=== PATIENT | male | born 1985 | race Caucasian/White ===

== ENCOUNTER 2022-12-04 11:04 | Emergency (ER) | payer OTHER, SELFPAY ==
[2022-12-04 11:15] VITALS: BP 122/81; PULSE 85; RESP 18; TEMP 36.6; O2SAT 95; BMI 23.7
[2022-12-04 11:35] VITALS: BP 132/94; PULSE 63; O2SAT 94
--- NOTE | 2022-12-04 11:40 | CTR_ITS ---
PROCEDURE INFORMATION: Exam: CT Abdomen And Pelvis With Contrast Exam date and time: 12/04/2022 12:04 PM Age: 37 years old Clinical indication: Abdominal pain; Other: Javad flank pain; Additional info: Left hip pain, trouble urinating unsure why TECHNIQUE: Imaging protocol: Computed tomography of the abdomen and pelvis with contrast. Radiation optimization: All CT scans at this facility use at least one of these dose optimization techniques: automated exposure control; mA and/or kV adjustment per patient size (includes targeted exams where dose is matched to clinical indication); or iterative reconstruction. Contrast material: OMIN 350; Contrast volume: 100 ml; Contrast route: INTRAVENOUS (IV); REPORTING DATA: Count of CT and Cardiac NM exams in prior 12 months: This patient has received 0 known CTs and 0 known cardiac nuclear medicine studies in the 12 months prior to the current study. COMPARISON: No relevant prior studies available. RADIATION DOSE METRICS: Total DLP (mGy-cm): 636.93 FINDINGS: Lungs: There is scattered subsegmental atelectasis right middle lobe partially visualized. Liver: Normal. No mass. Gallbladder and bile ducts: Normal. No calcified stones. No ductal dilation. Pancreas: Normal. No ductal dilation. Spleen: Normal. No splenomegaly. Adrenal glands: Normal. No mass. Kidneys and ureters: Normal. No hydronephrosis. Stomach and bowel: Mild degree of retained stool throughout majority the large bowel.. No obstruction. No mucosal thickening. Appendix: No evidence of appendicitis. Intraperitoneal space: Unremarkable. No free air. No significant fluid collection. Vasculature: Unremarkable. No abdominal aortic aneurysm. Lymph nodes: Unremarkable. No enlarged lymph nodes. Urinary bladder: Urinary bladder is somewhat collapsed limiting assessment. Reproductive: Prostate gland not significantly enlarged. Bones/joints: Chronic wedge-shaped compression fracture L1 treated with vertebroplasty. No acute bony abnormalities. Soft tissues: Unremarkable. CT/CT abdomen pelvis w con* [id number] IMPRESSION: No acute findings within the abdomen or pelvis.
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
[2022-12-04 12:08] LABS: Basophils # 0.1 10^3/uL (0.0-0.1); Basophils % 0.6 %; Eosinophils # 0.3 10^3/uL (0.0-0.8); Hematocrit 40.8 % (42.0-52.0); Hemoglobin 13.4 g/dL (11.7-16.6); Lymphocytes # 3.4 10^3/uL (0.8-4.8); Lymphocytes % 34.5 %; Mean Corpuscular HGB Conc 32.8 g/dL (30.0-36.0); Mean Corpuscular Hemoglobin 32.2 pg (28.0-34.0); Mean Corpuscular Volume 98.1 fl (80-94); Mean Platelet Volume 9.5 fL (7.4-10.4); Monocytes # 0.9 10^3/uL (0.2-0.9); Monocytes % 9.1 %; Neutrophils # 5.21 10^3/uL (1.8-7.7); Neutrophils % 52.5 %; Nucleated Red Blood Cells % 0 %; Platelet Count 334 10^3/cmm (130-400); Red Blood Count 4.16 10^6/uL (4.1-5.3); Red Cell Distribution Width 13.5 % (12.1-15.1); White Blood Count 9.9 10^3/uL (4.0-10.0)
[2022-12-04] MEDS: iohexol 350 mg/mL 500 mL Btl (per mL) IV (12:11)
[2022-12-04] MEDS: morphine 4 mg/mL SDV 1 mL 2 MG IVP (12:15)
[2022-12-04] MEDS: ondansetron 2 mg/ML SDV 2 mL 4 MG IVP (12:15)
[2022-12-04 12:16] VITALS: BP 122/86; PULSE 70; RESP 14; O2SAT 96
[2022-12-04 12:48] LABS: Add Urine Microscopic? NO; Charge for UA Resulting for Rev
[2022-12-04 12:50] LABS: Alanine Aminotransferase 16 U/L (0-41); Albumin Level 4.1 g/dL (3.5-5.2); Alkaline Phosphatase 54 U/L (40-130); Anion Gap 14.6 (5-19); Aspartate Amino Transferase 20 U/L (0-40); Blood Urea Nitrogen 14 mg/dL (6-20); C Reactive Protein 7.9 mg/L (0.0-4.9); Calcium 9.8 mg/dL (8.5-10.5); Carbon Dioxide 25 mmol/L (22-29); Chloride 101 mmol/L (98-107); Creatinine Clr Calc Pharmacy 149.3488; Globulin 2.5 g/dL (1.3-4.6); Glomerular Filtration Rate 107.6 mL/min (90-130); Glucose 100 mg/dL (65-115); Osmolality Calculated 285 mOsm/kg (285-295); Potassium 3.6 mmol/L (3.5-5.1); Sodium 137 mmol/L (136-145); Total Bilirubin 0.2 mg/dL (0.15-1.2); Total Protein 6.6 g/dL (6.6-8.7)
[2022-12-04 12:56] VITALS: BP 109/74; O2SAT 90
[2022-12-04 13:09] LABS: Urine Color Yellow (Yellow)
[2022-12-04 13:10] LABS: Bilirubin Urine Neg (Negative); Blood Urine Neg (Negative); Glucose Urine UA Norm (Normal); Ketones Urine Negative (Negative); Leukocyte Esterase Urine Negative (Negative); Nitrate Urine Negative (Negative); Protein Urine Neg (Negative); Urine Appearance Clear (CLEAR); Urobilinogen Urine Norm (Negative); pH Urine 5 (5-7)
[2022-12-04 13:12] LABS: Amphetamines Screen Urine Negative (Negative); Barbiturates Screen Urine Negative (Negative); Benzodiazepines Screen Urine Positive (Negative); Cocaine Screen Urine Negative (Negative); Opiate Screen Urine Negative (Negative); PCP Screen Urine Negative (Negative); THC Screen Urine Positive (Negative)
[2022-12-04] MEDS: dexamethasone 10 mg/mL INJ IVP (13:42)
[2022-12-04] MEDS: HYDROcodone-acetaminophen 5-325 mg Tablet 1 TAB PO (13:43)
[2022-12-04 13:44] VITALS: BP 110/73; PULSE 64; RESP 16; O2SAT 96
== END 2022-12-04 13:50 | disposition home or self-care (01) ==
PROVIDERS: Emergency Provider Emergency Medicine
DX: R39.198 Other difficulties with micturition (principal); M70.62 Trochanteric bursitis, left hip
CPT/HCPCS: 74177; 80053; 80306; 81003; 85025; 86140; 96374; 96375; 99285; J1100; J2270; J2405; Q9967

== ENCOUNTER 2023-01-19 23:48 | Inpatient (IN) | payer OTHER, SELFPAY ==
--- NOTE | 2023-01-19 23:53 | XRR_ITS ---
PROCEDURE INFORMATION: Exam: XR Chest Exam date and time: 01/20/2023 12:23 AM Age: 37 years old Clinical indication: Device placement; Ett placement (vent status); Patient HX: Check S/P intubation. ; Additional info: Post intubation TECHNIQUE: Imaging protocol: Radiologic exam of the chest. Views: 1 view. COMPARISON: CT abdomen pelvis w con* [id number] 12/04/2022 12:04 PM FINDINGS: Tubes, catheters and devices: An endotracheal tube is placed with its tip 3.8 cm from the martha. A nasogastric tube is present with the tip at least in the proximal stomach. Lungs: There are patchy opacities present in the left lower hemithorax possibly representing atelectasis although left basilar infiltrate and pneumonia cannot be excluded. Pleural spaces: Unremarkable. No pleural effusion. No pneumothorax. Heart/Mediastinum: Unremarkable. No cardiomegaly. Bones/joints: Unremarkable. XR/XR chest 1V portable [id number] IMPRESSION: 1. Endotracheal tube tip 3.8 cm from the martha. 2. Nasogastric tube tip at least in proximal stomach 3. Patchy opacities in the left lower hemithorax may represent atelectasis although left basilar infiltrate and pneumonia cannot be excluded in the appropriate clinical setting.
--- NOTE | 2023-01-19 23:53 | CTR_ITS ---
PROCEDURE INFORMATION: Exam: CT Head Without Contrast Exam date and time: 01/20/2023 1:18 AM Age: 37 years old Clinical indication: Patient HX: Intentional overdose with loss of airway. Intubated. ; Additional info: AMS, od TECHNIQUE: Imaging protocol: Computed tomography of the head without contrast. Radiation optimization: All CT scans at this facility use at least one of these dose optimization techniques: automated exposure control; mA and/or kV adjustment per patient size (includes targeted exams where dose is matched to clinical indication); or iterative reconstruction. REPORTING DATA: Count of CT and Cardiac NM exams in prior 12 months: This patient has received [address] and 0 known cardiac nuclear medicine studies in the 12 months prior to the current study. COMPARISON: No relevant prior studies available. RADIATION DOSE METRICS: Total DLP (mGy-cm): 1152.78 FINDINGS: Brain: Normal. No hemorrhage. Unremarkable white matter. No mass effect. Cerebral ventricles: No ventriculomegaly. Paranasal sinuses: Visualized sinuses are unremarkable. No fluid levels. Mastoid air cells: Visualized mastoid air cells are well aerated. Bones/joints: Unremarkable. No acute fracture. Soft tissues: Unremarkable. CT/CT head wo con* [id number] IMPRESSION: No acute intracranial abnormality.
--- NOTE | 2023-01-19 23:53 | W.ED.AMS ---
HPI - Altered Mental Status General: Chief Complaint: Overdose Stated Complaint: OD Time Seen by Provider: 01/19/23 23:52 Limitations: altered mental status History of Present Illness: Mr Palmer is a 37-year-old gentleman presenting to the emergency department with altered mental status and overdose. He provides no meaningful history. Supplemental information provided by is that patient has a history of depression though had been doing well. He seemed more depressed this morning however she shortly after going to bed he went to the bathroom and she found him taking multiple bottles of pills. He has gabapentin, some sort of blood pressure medication, hydrochlorothiazide, propranolol, tizanidine, possibly others. They filled her prescriptions at [facility]. History is otherwise limited by mental status changes the patient is obtunded. Review of Systems General: Reports: ROS unobtainable due to mental status PFS ED PFSH: Medical History (Updated 01/26/23 @ 20:16 by Angus Espino MD) Depression Hypertension Physical Exam Const: GENERAL APPEARANCE: well developed and ill appearing HENMT: COMMON NORMALS: normocephalic and atraumatic HEAD & SCALP: normocephalic and atraumatic THROAT: posterior oropharynx normal Eye: COMMON NORMALS: conjunctivae normal CONJUNCTIVA: Yes conjunctivae normal SCLERA: sclerae normal Neck/C-Spine: COMMON NORMALS: supple GENERAL: Yes trachea midline Chest: OTHER: Minimal chest wall abrasions Resp: COMMON NORMALS: clear to auscultation bilaterally EFFORT & INSPECTION: Yes able to speak in complete sentences AUSCULTATION: clear to auscultation bilaterally Cardio: COMMON NORMALS: regular rhythm RATE: bradycardic RHYTHM: regular rhythm GI: COMMON NORMALS: Soft to palpation PALPATION: Yes Soft to palpation and No Tenderness to palpation present (GI) Extremity: NARRATIVE EXTREMITY EXAM: Linear approximately 3 cm single transversely oriented superficial laceration to the left wrist. Extends just below the dermal layer. Repaired with skin glue as noted. GENERAL: Yes normal exam except as noted and No edema Neuro: SENSORIUM/ORIENTATION: Yes Orientation impaired and Yes obtunded OTHER: Unresponsive to deep noxious stimuli. Psych: MEMORY/COGNITION: Yes cognition grossly impaired Procedures Intubation Time out performed: Yes sedative: Etomidate Mg Given: 30 paralytic: Vecuronium Mg Given: 10 Laryngoscope: fiber optic video scope ET Tube Size: 8 ET Tube Uncuffed: No Tube Secured Depth (cm): 22 Tube Secured Location: lips Tube Placement Confirmation: visualized tube passing through cords, equal breath sounds bilaterally, no breath sounds over epigastrium and confirmation by capnometry Patient Tolerated Procedure: well and no complications Laceration Laceration 1: Site: upper extremity Side (If applicable): left Size (cm): 4 Description: linear Depth: simple, single layer Pre-repair: wound explored, irrigated extensively and deep structures intact Skin layer closed with: other (Dermabond) Course Vital Signs: Vital signs: Vital Signs Temperature 99.2 F 01/26/23 17:00 Pulse Rate 93 01/26/23 18:00 Respiratory Rate 27 H 01/26/23 18:00 Blood Pressure 108/70 01/26/23 18:00 Pulse Oximetry 98 01/26/23 18:00 Oxygen Delivery Me thod Nasal Cannula 01/26/23 17:00 Oxygen Flow Rate 2 01/26/23 17:00 Fraction of Inspir ed Oxygen 28 01/25/23 09:13 MDM - Altered Mental Status Medical Decision Making Patient presents with significant alteration in mental status in the context of drug overdose. He is unresponsive to deep noxious stimuli. He is hypoxemic on room air. Given degree of sedation/mental status change she requires endotracheal intubation which was performed. Per multiple sedatives and beta-blockers. Patient initiated on norepinephrine for bradycardia/hypotension. No significant neurologic or metabolic abnormalities to explain symptoms. Patient does appear to have LIBAN. Tox ingestions negative with exception of positive UDS for benzodiazepines. RT titration of vent settings. Chest x-ray with satisfactory ET tube placement reviewed at bedside. CT head negative. Most likely etiology of symptoms is suicide attempt by polysubstance overdose including sedatives and beta-blockers leading to acute hypoxic respiratory failure. He is also hypotensive and has LIBAN. The results of ED evaluation were discussed with the patient's including plan for admission due to requirement for level of care not available if discharged to prevent significant worsening/deterioration. Patient with agreeable with plan. Discussed with hospitalist service who was agreeable to admit patient. Medical Records I reviewed the patient's medical records. Lab Data I reviewed the patient's lab results. 01/26/23 02:54 01/26/23 02:[address] 01/22/23 03:19 IMPRESSION: No acute intracranial abnormality. Chest/Abdomen/Pelvis CT 01/22/23 08:38 IMPRESSION: Dependent bibasilar consolidation, could be consistent with atelectasis versus pneumonia. IMPRESSION: Findings likely consistent with right-sided colitis. COMMENTS: Evaluation of solid organs and vascular structures is limited as no IV contrast was administered. ADDENDUM: 01/22/23 1109 Per request of ordering physician, please comment on stomach contents and possibility of pills . Dense ingested material noted within the stomach lumen. No foreign bodies or definitive formed pills within the stomach. Chest X-Ray 01/23/23 09:07 Impression: 1. Clearing of bibasilar lung opacities. 2. No change in multiple tubes. Foot X-Ray 01/26/23 13:53 IMPRESSION: No acute findings. Knee X-Ray 01/26/23 13:53 IMPRESSION: No acute findings. Laboratory Results WBC 10.0 10^3/uL (4.0-10.0) 01/19/23 23:52 RBC 4.41 10^6/uL (4.1-5.3) 01/19/23 23:52 Hgb 14.3 g/dL (11.7-16.6) 01/19/23 23:52 Hct 42.5 % (42.0-52.0) 01/19/23 23:52 MCV 96.4 fl (80-94) H 01/19/23 23:52 MCH 32.4 pg (28.0-34.0) 01/19/23 23:52 MCHC 33.6 g/dL (30.0-36.0) 01/19/23 23:52 RDW 13.1 % (12.1-15.1) 01/19/23 23:52 Plt Count 291 10^3/cmm (130-400) 01/19/23 23:52 MPV 9.4 fL (7.4-10.4) 01/19/23 23:52 Neut % (Auto) 48.9 % 01/19/23 23:52 Lymph % (Auto) 38.0 % 01/19/23 23:52 Traill % (Auto) 9.0 % 01/19/23 23:52 Eos % (Auto) 3.3 % 01/19/23 23:52 Baso % (Auto) 0.6 % 01/19/23 23:52 Neut # (Auto) 4.91 10^3/uL (1.8-7.7) 01/19/23 23:52 Lymph # (Auto) 3.8 10^3/uL (0.8-4.8) 01/19/23 23:52 Traill # (Auto) 0.9 10^3/uL (0.2-0.9) 01/19/23 23:52 Eos # (Auto) 0.3 10^3/uL (0.0-0.8) 01/19/23 23:52 Baso # (Auto) 0.1 10^3/uL (0.0-0.1) 01/19/23 23:52 Nucleated RBC % (auto) 0 % 01/19/23 23:52 Nucleated RBCs # 0.0 /100WBC 01/19/23 23:52 Specimen Type Arterial 01/20/23 00:10 Sample Site Brachial, right 01/20/23 00:10 ABG pH 7.38 (7.35-7.45) 01/20/23 00:10 ABG pCO2 37.2 mmHg (35-45) 01/20/23 00:10 ABG pO2 116.0 mmHg (80.0-100.0) H 01/20/23 00:10 ABG HCO3 22.2 mmol/L (22-26) 01/20/23 00:10 ABG Base Excess -2.5 mmol/L (-2.0-2.0) L 01/20/23 00:10 Kostas Test Pos 01/20/23 00:10 Hematocrit 42.5 % (42-52) 01/20/23 00:10 O2 Delivery Device Vent 01/20/23 00:10 FiO2 100.0 % 01/20/23 00:10 Tidal Volume 0.52 01/20/23 00:10 PEEP 8.0 cmH20 01/20/23 00:10 Lesson Instructor ID Juan Daniel 01/20/23 00:10 Sodium 139 mmol/L (136-145) 01/19/23 23:52 Potassium 3.8 mmol/L (3.5-5.1) 01/19/23 23:52 Chloride 103 mmol/L (98-107) 01/19/23 23:52 Carbon Dioxide 22 mmol/L (22-29) 01/19/23 23:52 Anion Gap 17.8 (5-19) 01/19/23 23:52 BUN 18 mg/dL (6-20) 01/19/23 23:52 Creatinine 1.7 mg/dL (0.7-1.2) H 01/19/23 23:52 GFR Calculation 45.1 mL/min (90-130) L 01/19/23 23:52 Glucose 211 mg/dL (65-115) H 01/19/23 23:52 Calculated Osmolality 296 mOsm/kg (285-295) H 01/19/23 23:52 Calcium 8.8 mg/dL (8.5-10.5) 01/19/23 23:52 Total Bilirubin 0.3 mg/dL (0.15-1.2) 01/19/23 23:52 AST 14 U/L (0-40) 01/19/23 23:52 ALT 14 U/L (0-41) 01/19/23 23:52 Alkaline Phosphatase 50 U/L (40-130) 01/19/23 23:52 Troponin T Baseline 8 ng/L (0-15) 01/19/23 23:52 Total Protein 6.8 g/dL (6.6-8.7) 01/19/23 23:52 Albumin 4.1 g/dL (3.5-5.2) 01/19/23 23:52 Globulin 2.7 g/dL (1.3-4.6) 01/19/23 23:52 TSH 2.16 uIU/mL (0.27-4.20) 01/19/23 23:52 Salicylates < 0.3 mg/dL (3-10) L 01/19/23 23:52 Acetaminophen < 5.0 ug/mL (10-30) L 01/19/23 23:52 Ethyl Alcohol < 10 mg/dL (0-10) 01/19/23 23:52 Critical Care Time Critical Care Time: Critical Care Time: Yes Total Critical Care Time: 45 Attestation: Due to a high probability of clinically significant, possibly life threatening deterioration, the patient required my highest level of attention and preparedness to intervene emergently and I personally spent this critical care time directly and personally managing the patient. This critical care time included obtaining a history; examining the patient; pulse oximetry; ordering and review of laboratory and imaging studies; arranging urgent treatment with development of a management plan; evaluation of patient's response to treatment; frequent reassessment; and, discussions with other providers as applicable. It was exclusive of separately billable procedures. Primary systems involved are toxic and cardiopulmonary. Discharge Plan Discharge Patient Disposition: Admitted As Inpatient Admit Provider: Cristina John Clinical Impression: Suicide attempt by multiple drug overdose, Acute alteration in mental status, Acute respiratory failure with hypoxia, Acute hypotension Condition: Stable Coding Level of Care Code ED Director Of Scientific Research for Daren Reddy
--- NOTE | 2023-01-19 23:55 | ECG_ITS ---
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 Measurements Intervals [place] Rate: 68 P: 48 MS: 193 QRS: 52 QRSD: 91 T: 42 QT: 377 QTc: 403 Interpretive Statements SINUS RHYTHM POSSIBLE LEFT ATRIAL ENLARGEMENT [-0.1mV P-WAVE IN V1/V2] No previous ECG available for comparison Electronically Signed On 01-20-2023 13:51:36 CDT by Spencer Mas M.D. [id number]
[2023-01-19 23:59] LABS: Basophils # 0.1 10^3/uL (0.0-0.1); Basophils % 0.6 %; Eosinophils # 0.3 10^3/uL (0.0-0.8); Eosinophils % 3.3 %; Hematocrit 42.5 % (42.0-52.0); Hemoglobin 14.3 g/dL (11.7-16.6); Lymphocytes # 3.8 10^3/uL (0.8-4.8); Mean Corpuscular HGB Conc 33.6 g/dL (30.0-36.0); Mean Corpuscular Hemoglobin 32.4 pg (28.0-34.0); Mean Corpuscular Volume 96.4 fl (80-94); Mean Platelet Volume 9.4 fL (7.4-10.4); Monocytes # 0.9 10^3/uL (0.2-0.9); Neutrophils # 4.91 10^3/uL (1.8-7.7); Neutrophils % 48.9 %; Nucleated Red Blood Cells % 0 %; Platelet Count 291 10^3/cmm (130-400); Red Blood Count 4.41 10^6/uL (4.1-5.3); Red Cell Distribution Width 13.1 % (12.1-15.1)
[2023-01-20] VITALS (139 sets, daily range): BP systolic 71–132; BP diastolic 46–94; PULSE 38–80; RESP 12–17; TEMP 33.8–37.2; O2SAT 90–100; BMI 21.2; BMI 25.7
[2023-01-20 00:22] LABS: Troponin(5th) Baseline 8 ng/L (0-15)
[2023-01-20 00:24] LABS: ABG PCO2 37.2 mmHg (35-45); ABG PH Result 7.38 (7.35-7.45); Arterial Blood Gas Hematocrit 42.5 % (42-52); Base Excess ABG -2.5 mmol/L (-2.0-2.0); Blood Gas Allen Test Pos; Blood Gas Operator Identificat JB; Blood Gas Sample Site Brachial, right; Blood Gas Sample Type Arterial; Blood Gas Tidal Volume 0.52; HCO3 ABG 22.2 mmol/L (22-26); Oxygen Device VENT
[2023-01-20] MEDS: fentaNYL 50 mcg/mL INJ 2mL IVP (00:24)
[2023-01-20] MEDS: midazolam 1 mg/mL INJ 2 mL 2 MG IVP (00:24)
--- NOTE | 2023-01-20 00:27 | PC.NURSE ---
Patient brought in per stated patient overdosed on seroquel and blood pressure meds, staff brought patient into hospital as he was unresponsive in front seat. When brought to room, dr gar at bedside, and gave orders to intubate. 30 of etomidate and 10 of vec were ordered. Respiratory at bedside.
[2023-01-20 00:29] LABS: Alanine Aminotransferase 14 U/L (0-41); Albumin Level 4.1 g/dL (3.5-5.2); Alkaline Phosphatase 50 U/L (40-130); Anion Gap 17.8 (5-19); Aspartate Amino Transferase 14 U/L (0-40); Blood Urea Nitrogen 18 mg/dL (6-20); Calcium 8.8 mg/dL (8.5-10.5); Carbon Dioxide 22 mmol/L (22-29); Chloride 103 mmol/L (98-107); Globulin 2.7 g/dL (1.3-4.6); Glomerular Filtration Rate 45.1 mL/min (90-130); Glucose 211 mg/dL (65-115); Osmolality Calculated 296 mOsm/kg (285-295); Potassium 3.8 mmol/L (3.5-5.1); Sodium 139 mmol/L (136-145); Thyroid Stimulating Hormone 2.16 uIU/mL (0.27-4.20); Total Bilirubin 0.3 mg/dL (0.15-1.2); Total Protein 6.8 g/dL (6.6-8.7)
[2023-01-20 00:36] LABS: Acetaminophen < 5.0 ug/mL (10-30); Alcohol Level < 10 mg/dL (0-10); Salicylate < 0.3 mg/dL (3-10)
[2023-01-20] MEDS: etomidate 2 mg/mL INJ SDV 10 mL 30 MG IVP (00:38)
[2023-01-20] MEDS: vecuronium 10 mg SDV IVP (00:38)
--- NOTE | 2023-01-20 01:54 | ECG_ITS ---
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 Measurements Intervals [place] Rate: 57 P: 58 [place]: 189 QRS: 73 QRSD: 99 T: 55 QT: 420 QTc: 410 Interpretive Statements SINUS BRADYCARDIA EARLY REPOLARIZATION [ST ELEVATION WITH NORMALLY INFLECTED T-WAVE] Compared to ECG 01/19/2023 23:55:53 Early repolarization now present Sinus rhythm no longer present Electronically Signed On 01-20-2023 13:54:18 CDT by Spencer Mas M.D. [email or web address] [email or web address] madisonWi-[facility].Infectious/store/[id number]
--- NOTE | 2023-01-20 02:21 | PC.NURSE ---
Addendum entered by Staci Ontiveros RN 01/20/23 03:11: Witnessed 100 ml waste of Versed with YEIMI Redmond. Original Note: Versed 100mg/100mL concentration- Wasted 100mL witnessed by YEIMI Small
[2023-01-20] MEDS: sodium chloride 0.9% 1,000 ML 999 ML IV ×6 (02:23→16:09)
[2023-01-20 02:25] LABS: Amphetamines Screen Urine Negative (Negative); Barbiturates Screen Urine Negative (Negative); Benzodiazepines Screen Urine Positive (Negative); Cocaine Screen Urine Negative (Negative); Opiate Screen Urine Negative (Negative); PCP Screen Urine Negative (Negative); THC Screen Urine Negative (Negative)
[2023-01-20 02:26] LABS: Add Urine Culture? No; Add Urine Microscopic? YES; Bilirubin Urine 1+ (Negative); Blood Urine Neg (Negative); Glucose Urine UA Norm (Normal); Ketones Urine Negative (Negative); Leukocyte Esterase Urine Negative (Negative); Nitrate Urine Negative (Negative); Protein Urine Trace (Negative); Squamous Epithelial Cell Urine 0-4 /hpf (0-5); Urine Appearance Clear (CLEAR); Urine Color Yellow (Yellow); Urobilinogen Urine Neg (Negative); pH Urine 7 (5-7)
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
[2023-01-20] MEDS: heparin 5,000 unit/mL INJ 1 mL 5000 UNIT SUBCUT ×2 (02:51→14:34)
[2023-01-20] MEDS: piperacillin-tazobactam 3.375 GM in sodium chloride 0.9% (plus) 50 ML IV ×3 (02:55→20:02)
[2023-01-20] MEDS: vancomycin 1,250 MG/250 ML PIGGYBACK 250 MG IV ×2 (02:57→20:06)
[2023-01-20] MEDS: DOPamine drip 400 MG/250 ML PREMIX 14.46 MG IV ×2 (03:52→23:00)
[2023-01-20 03:55] LABS: Troponin 5 2HR Delta 2 ABS# (0-10)
--- NOTE | 2023-01-20 04:16 | XRR_ITS ---
PROCEDURE INFORMATION: Exam: XR Chest Exam date and time: 01/20/2023 3:22 AM Age: 37 years old Clinical indication: Other vascular access device placement or adjustment; Central line, tunnelled; Patient HX: Check S/P RT central line placement; Additional info: Cetral line placement TECHNIQUE: Imaging protocol: Radiologic exam of the chest. Views: 1 view. COMPARISON: CR (CHEST, ) 01/20/2023 12:23 AM FINDINGS: Tubes, catheters and devices: A right internal jugular vein central venous line is placed with its tip at the level of the superior vena cava. An endotracheal tube is placed with its tip approximately 5.9 cm from the martha. Nasogastric tube is present with its tip at least in the proximal stomach. EKG leads overlie the chest. Lungs: There are linear and patchy opacities seen in the lower hemithoraces bilaterally, left slightly more prominent than right likely representing atelectasis. A bilateral basilar pneumonitis cannot be entirely excluded. Pleural spaces: Unremarkable. No pleural effusion. No pneumothorax. Heart/Mediastinum: Unremarkable. No cardiomegaly. Bones/joints: Unremarkable. XR/XR chest 1V portable [id number] IMPRESSION: 1. Right internal jugular vein central venous line placed with its tip at the level of the superior vena cava. 2. Endotracheal tube tip 5.9 cm from the martha. 3. Nasogastric tube tip at least in proximal stomach 4. Linear and patchy opacities seen in the lung bases bilaterally, left slightly more prominent than right may represent atelectasis although bilateral basilar pneumonitis cannot be entirely excluded.
[2023-01-20] MEDS: sodium chloride 0.9% 1,000 ML 125 ML IV ×2 (04:29→09:26)
[2023-01-20] MEDS: sodium chloride 0.9% 500 ML XX (05:12)
--- NOTE | 2023-01-20 05:20 | USCV_ITS ---
Estela Piyush Age: 37 Gender: M : 1985 Exam Date: 01/20/2023 12:21 Ordering Phys: Cristina John MD Technologist: FOREIGN Exam Location: [facility] Indication: ekg changes BP: / HR: 51 Rhythm: Sinus Technical Quality: Adequate MEASUREMENTS (Male / Female) Normal Values 2D ECHO LV Diastolic Diameter PLAX 5.4 cm 4.2 - 5.9 / 3.9 - 5.3 cm LV Systolic Diameter PLAX 3.4 cm IVS Diastolic Thickness 0.9 cm 0.6 - 1.0 / 0.6 - 0.9 cm IVS Systolic Thickness 1.2 cm LVPW Diastolic Thickness 0.9 cm 0.6 - 1.0 / 0.6 - 0.9 cm LVPW Systolic Thickness 1.2 cm LVOT Diameter 2.7 cm LV Ejection Fraction 2D Teich 65.9 % LV Ejection Fraction MOD 2C 28.3 % LV Ejection Fraction 2C AL 29.2 % LA Diameter 3.4 cm IVC Diameter 2.7 cm M-MODE Aortic Annulus Diameter 3.9 cm LA Ao Ratio MM 0.9 MV E Point Septal Separation 1.6 cm DOPPLER AV Peak Velocity 97.0 cm/s LVOT Peak Velocity 80.0 cm/s AV Area Cont Eq vti 4.9 cm squared AV Area Cont Eq pk 4.9 cm squared MV Area PHT 4.0 cm squared Mitral E to A Ratio 1.8 MV E' Velocity 42.0 cm/s Mitral E to MV E' Ratio 5.8 Mitral E to LV E' Lateral Ratio 6.0 Mitral E to LV E' Septal Ratio 5.7 TR Peak Velocity 176.3 cm/s TR Peak Gradient 12.4 mmHg TV Peak E Velocity 42.0 cm/s Right Atrial Pressure 3.0 mmHg Pulmonary Artery Systolic Pressu 15.4 mmHg PV Peak Velocity 81.0 cm/s FINDINGS Left Ventricle Left ventricle is normal size. LV systolic function is mildly reduced with EF of 45-50%. Mild global hypokinesis. Right Ventricle Normal in size and function Right Atrium Normal in size Left Atrium Normal in size Mitral Valve Structurally normal mitral valve. Aortic Valve Structurally normal aortic valve. No significant stenosis or regurgitation. Tricuspid Valve Trace tricuspid regurgitation. Insufficient TR jet to evaluate RVSP. Pulmonic Valve Not well-visualized. Pericardium Normal Aorta Aortic root is mildly dilated. IVC Dilated CONCLUSIONS LV systolic function is mildly reduced with EF of 45 to 50%. Trace tricuspid regurgitation Aortic root is mildly dilated IVC is dilated No comparison studies are available. Spencer Mas MD (Electronically Signed) Final Date: 20 January 2023 13:40 S
--- NOTE | 2023-01-20 05:45 | ECG_ITS ---
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 Measurements Intervals [place] Rate: 59 P: 62 [place]: 197 QRS: 77 QRSD: 105 T: 46 QT: 422 QTc: 419 Interpretive Statements SINUS BRADYCARDIA Compared to ECG 01/20/2023 02:02:59 Early repolarization no longer present Electronically Signed On 01-20-2023 13:53:44 CDT by Spencer Mas M.D. [id number]
[2023-01-20 06:10] LABS: ABG PCO2 33.5 mmHg (35-45); ABG PH Result 7.35 (7.35-7.45); Arterial Blood Gas Hematocrit 35.7 % (42-52); Base Excess ABG -6.5 mmol/L (-2.0-2.0); Blood Gas Operator Identificat JB; Blood Gas Sample Site Not specified; Blood Gas Sample Type Arterial; Blood Gas Tidal Volume 0.52; Carboxyhemoglobin 0.6 %THgb (0.4-20.1); HCO3 ABG 18.3 mmol/L (22-26); HGB O2 Sat 96.5 % (95-100); Ionized Calcium Level - ABG 1.1 mmol/L (1.1-1.4); Oxygen Device VENT; Potassium Level - ABG 2.6 mmol/L (3.5-5.0); Total Hemoglobin 11.6 g/dL (14-18)
[2023-01-20 07:04] LABS: Glucose Point of Care 211 mg/dL (70-110)
[2023-01-20 07:13] LABS: Basophils # 0.1 10^3/uL (0.0-0.1); Basophils % 0.3 %; Eosinophils # 0.5 10^3/uL (0.0-0.8); Eosinophils % 2.6 %; Hematocrit 36.9 % (42.0-52.0); Hemoglobin 12.4 g/dL (11.7-16.6); Lymphocytes # 4.6 10^3/uL (0.8-4.8); Lymphocytes % 25.9 %; Mean Corpuscular HGB Conc 33.6 g/dL (30.0-36.0); Mean Corpuscular Hemoglobin 33.1 pg (28.0-34.0); Mean Corpuscular Volume 98.4 fl (80-94); Mean Platelet Volume 9.7 fL (7.4-10.4); Monocytes # 1.8 10^3/uL (0.2-0.9); Monocytes % 10.3 %; Neutrophils # 10.62 10^3/uL (1.8-7.7); Neutrophils % 60.3 %; Nucleated Red Blood Cells % 0 %; Platelet Count 254 10^3/cmm (130-400); Red Blood Count 3.75 10^6/uL (4.1-5.3); Red Cell Distribution Width 13.2 % (12.1-15.1); White Blood Count 17.6 10^3/uL (4.0-10.0)
--- NOTE | 2023-01-20 07:19 | PC.NURSE ---
0645 Spoke to Tessa at poison control. Reported medications that patient's stated he ingested. Recommendations included glucagon infusion and no Romazicon at this time. All information from poison control was relayed to Dr. John. Orders received.
[2023-01-20 07:30] LABS: Alanine Aminotransferase 12 U/L (0-41); Albumin Level 3.4 g/dL (3.5-5.2); Alkaline Phosphatase 36 U/L (40-130); Anion Gap 15.2 (5-19); Aspartate Amino Transferase 13 U/L (0-40); Blood Urea Nitrogen 19 mg/dL (6-20); Calcium 7.6 mg/dL (8.5-10.5); Carbon Dioxide 20 mmol/L (22-29); Chloride 109 mmol/L (98-107); Globulin 2.1 g/dL (1.3-4.6); Glomerular Filtration Rate 61.5 mL/min (90-130); Glucose 227 mg/dL (65-115); Magnesium 1.9 mg/dL (1.7-2.3); Osmolality Calculated 301 mOsm/kg (285-295); Potassium 3.2 mmol/L (3.5-5.1); Sodium 141 mmol/L (136-145); Total Bilirubin 0.5 mg/dL (0.15-1.2); Total Protein 5.5 g/dL (6.6-8.7); Troponin 5 6HR 9.59 ng/L (0-15)
--- NOTE | 2023-01-20 07:36 | PC.PHAR ---
pt unable to verify medications-pts renate [phone] verified pts medications-pts states the pt had a empty bottle of abilify at home states the bottle was dated 12/16/2021 pts states the pt took the whole bottle last night ext med history doesnt show when last filled-pts states the pt takes clonazepan 2mg tid ext med history shows last filled 01/19/23 30d/s for 2mg tid prn pts states the pt doesnt take prn states takes tid-pts states she couldnt find the cymbalta 60mg bottle ext med history shows last filled 01/10/23 60mg bid prn pts states the pt takes cymbalta-notes are made in the pharmacy comments
[2023-01-20 07:45] LABS: Troponin 5 6HR Delta 1.59 ng/L (0-12)
[2023-01-20] MEDS: EPINEPHrine 2.5 MG in sodium chloride 0.9% 250 ML 12.12 MG IV (07:58)
--- NOTE | 2023-01-20 08:00 | PC.NURSE ---
recieved report from pcu rn ,, remains hypotensive and bradycardia , Dr Church called orders for pressers to start temp of 94 ax noted started on slow warming with blanket.. no response at this time poison controll called ,, aware unable to obtain any more glucagon is on back order and [facility] in [place] check none able to obtain at this time... titrating meds at this time
[2023-01-20] MEDS: phenylephrine inj 25 MG in sodium chloride 0.9% 250 ML 24.24 MG IV ×2 (08:11→15:49)
--- NOTE | 2023-01-20 08:45 | ECG_ITS ---
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 Measurements Intervals [place] Rate: 40 P: 65 SD: 187 QRS: 76 QRSD: 102 T: 46 QT: 518 QTc: 423 Interpretive Statements SINUS BRADYCARDIA Compared to ECG 01/20/2023 06:25:40 No significant changes Electronically Signed On 01-20-2023 13:53:17 CDT by Spencer Mas M.D. https://[employer] Technology Groupwest campus of delta regional medical centerAvubaaultman hospitalXiaoyezi Technology/store/OM/[id number]/[id number]
--- NOTE | 2023-01-20 09:00 | PC.NURSE ---
remains rashaun temp up slowly monitor vs at this time
[2023-01-20] MEDS: pantoprazole 40 mg SDV IVP (09:40)
[2023-01-20 09:47] LABS: Glucose Point of Care 159 mg/dL (70-110)
--- NOTE | 2023-01-20 10:33 | PC.NURSE ---
poison control called and talked with Dr Church.. no change in care at this time continue to monitor raise temp and titrate pressures at this time
[2023-01-20] MEDS: DOPamine drip 400 MG/250 ML PREMIX 28.92 MG IV (10:44)
[2023-01-20 11:01] LABS: Glucose Point of Care 169 mg/dL (70-110)
--- NOTE | 2023-01-20 11:15 | PC.CHAP ---
Pastoral Care Encounter/Spiritual Assessment Type of Contact [] Declined farm crew leader visit [] Patient/Family/Request visit [] Outpatient visit [] Follow-up visit [] Physician referral [] Code/Alert x [] Out of room [] Palliative care [] [] Receiving care in room [] Pre-surgical visit [] Trauma [] Long length of stay [] ICU visit [] Other: Relational/Emotional Strength [] Patient feels connected with others/family/visitors/staff [] Distress [] Loneliness/isolation [] Abandonment Spirituality of Patient [] Person of Cecy [] Attends Orthodox of their Cecy [] Believes in Prayer [] Reads Bible or Catholic materials [] There are Spiritual issues to be addressed Claim Taker Interventions [] Prayer [] Active listening [] Non-anxious presence [] Spiritual/emotional support [] Crisis/trauma care [] Spiritual counseling [] Bereavement support [] Provided bereavement packet [] Provided Bible/devotional materials [] Provided toy/stuffed animal, coloring book to patient or family member [] Provided Communion [] Anointing/[place] [] Salvation [] Completed spiritual assessment [] Other: Impact on Illness or Injury [] Angry [] Fearful [] Anxious [] Often cries [] Exhaustion [] Unable to work [] Unable to attend pentecostalism [] Unable to walk/stand [] Unable to read [] Unable to drive [] Unable to eat/drink [] Unable to sleep [] Unable to be with family [] Patient intubated [] Other: Summary Time spent with patient
--- NOTE | 2023-01-20 11:37 | PC.NURSE ---
temp slowly increasing monitor blood pressure at this time... urine outputremains good here for brief visit then left for time
--- NOTE | 2023-01-20 11:45 | ECG_ITS ---
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 Measurements Intervals [place] Rate: 57 P: 62 [place]: 180 QRS: 77 QRSD: 98 T: 49 QT: 400 QTc: 392 Interpretive Statements SINUS BRADYCARDIA Compared to ECG 01/20/2023 08:35:55 No significant changes Electronically Signed On 01-20-2023 13:52:38 CDT by Spencer Mas M.D. [email or web address].Farmanlawrence county hospitalXinyi Networkkettering health miamisburgInventure Cloud/store/OM/[id number]
--- NOTE | 2023-01-20 12:41 | PC.NURSE ---
weaned off phenylphedrine and lowering dopamine gtt at this time
[2023-01-20 13:25] LABS: Glucose Point of Care 155 mg/dL (70-110)
[2023-01-20 13:25] LABS: Glucose Point of Care 154 mg/dL (70-110)
[2023-01-20] MEDS: EPINEPHrine 2.5 MG in sodium chloride 0.9% 250 ML 36.36 MG IV (13:26)
[2023-01-20 13:39] LABS: Alanine Aminotransferase 12 U/L (0-41); Albumin Level 3.4 g/dL (3.5-5.2); Alkaline Phosphatase 37 U/L (40-130); Anion Gap 14.5 (5-19); Aspartate Amino Transferase 13 U/L (0-40); Blood Urea Nitrogen 16 mg/dL (6-20); Calcium 6.8 mg/dL (8.5-10.5); Carbon Dioxide 17 mmol/L (22-29); Chloride 110 mmol/L (98-107); Globulin 1.7 g/dL (1.3-4.6); Glomerular Filtration Rate 83.2 mL/min (90-130); Glucose 145 mg/dL (65-115); Osmolality Calculated 290 mOsm/kg (285-295); Potassium 3.5 mmol/L (3.5-5.1); Sodium 138 mmol/L (136-145); Total Bilirubin 0.6 mg/dL (0.15-1.2); Total Protein 5.1 g/dL (6.6-8.7)
[2023-01-20] MEDS: norepinephrine 8 MG in dextrose 5 % 500 ML 76.2 MG IV ×2 (14:04→21:21)
[2023-01-20 14:09] LABS: Glucose Point of Care 151 mg/dL (70-110)
--- NOTE | 2023-01-20 14:26 | PC.NURSE ---
poison control called update no change to our orders recomended
--- NOTE | 2023-01-20 14:33 | PM.MISC ---
Miscellaneous Note Note: Overnight HPI has been reviewed, his vitals and labs have been reviewed, currently patient is off dopamine as well as phenylephrine, has received altogether 6 LS normal saline so far, currently he is on Levophed, epinephrine, as well as, vasopressin. Currently he is making good urine output.Serum creatinine has normalized.Currently patient is off sedation,and has a very poor gag response, GCS will be around 3T currently.
--- NOTE | 2023-01-20 14:45 | ECG_ITS ---
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 Measurements Intervals [place] Rate: 61 P: 64 [place]: 183 QRS: 80 QRSD: 97 T: 51 QT: 383 QTc: 388 Interpretive Statements SINUS RHYTHM Compared to ECG 01/20/2023 12:48:26 Sinus bradycardia no longer present Electronically Signed On 01-21-2023 10:34:57 CDT by Spencer Mas M.D. [email or web address].Hubspanhollywood community hospital of van nuysSim Ops Studios/store/OM/[id number]
[2023-01-20 15:04] LABS: Glucose Point of Care 120 mg/dL (70-110)
[2023-01-20 16:04] LABS: Glucose Point of Care 117 mg/dL (70-110)
[2023-01-20] MEDS: dextrose 5%-sod chloride 0.9% 1,000 ML 125 ML IV (16:08)
[2023-01-20 17:00] LABS: Glucose Point of Care 115 mg/dL (70-110)
[2023-01-20] MEDS: hydrocortisone 100 mg/2 mL SDV IVP ×2 (17:11→23:16)
--- NOTE | 2023-01-20 17:28 | PC.NURSE ---
Dr cadena noted blood pressure decrease and scleara edema , pupils remain reactive very poor gag reflex with suction and oral care at this time .. increase pressers back to this am and phenelphyerine increased to 10 mcg per order .. u/o noted has had no purposful response at this time
--- NOTE | 2023-01-20 17:35 | ECG_ITS ---
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 Measurements Intervals [place] Rate: 57 P: 62 [place]: 172 QRS: 82 QRSD: 96 T: 54 QT: 409 QTc: 400 Interpretive Statements SINUS BRADYCARDIA Compared to ECG 01/20/2023 15:13:39 Sinus rhythm no longer present Electronically Signed On 01-21-2023 10:34:18 CDT by Spencer Mas M.D. https://[employer].15Fiveeisenhower medical centerVirtual Call Center/store/OM/[id number]
[2023-01-20] MEDS: phenylephrine inj 25 MG in sodium chloride 0.9% 250 ML 60.6 MG IV (18:44)
[2023-01-20 19:55] LABS: Alanine Aminotransferase 12 U/L (0-41); Albumin Level 3.3 g/dL (3.5-5.2); Alkaline Phosphatase 36 U/L (40-130); Anion Gap 13.7 (5-19); Aspartate Amino Transferase 11 U/L (0-40); Blood Urea Nitrogen 14 mg/dL (6-20); Calcium 6.8 mg/dL (8.5-10.5); Carbon Dioxide 16 mmol/L (22-29); Chloride 111 mmol/L (98-107); Globulin 1.8 g/dL (1.3-4.6); Glomerular Filtration Rate 93.9 mL/min (90-130); Glucose 139 mg/dL (65-115); Osmolality Calculated 287 mOsm/kg (285-295); Potassium 3.7 mmol/L (3.5-5.1); Sodium 137 mmol/L (136-145); Total Bilirubin 0.4 mg/dL (0.15-1.2); Total Protein 5.1 g/dL (6.6-8.7)
[2023-01-20 20:17] LABS: Glucose Point of Care 141 mg/dL (70-110)
--- NOTE | 2023-01-20 22:10 | ECG_ITS ---
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 Measurements Intervals [place] Rate: 45 P: 60 [place]: 154 QRS: 74 QRSD: 98 T: 53 QT: 463 QTc: 402 Interpretive Statements SINUS BRADYCARDIA Compared to ECG 01/20/2023 17:35:12 No significant changes Electronically Signed On 01-21-2023 10:33:25 CDT by Spencer Mas M.D. [email or web address] [employer].Tappitsuburban medical centerSolta Medical/store/OM/[id number]
[2023-01-20 22:51] LABS: Glucose Point of Care 155 mg/dL (70-110)
[2023-01-20] MEDS: EPINEPHrine 2.5 MG in sodium chloride 0.9% 250 ML 48.48 MG IV (23:17)
[2023-01-20] MEDS: glucagon 1 mg/mL KIT 1 mL 5 MG IV (23:27)
--- NOTE | 2023-01-20 23:45 | ECG_ITS ---
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 Measurements Intervals [place] Rate: 42 P: 56 [place]: 160 QRS: 76 QRSD: 100 T: 53 QT: 453 QTc: 381 Interpretive Statements SINUS BRADYCARDIA Compared to ECG 01/20/2023 22:10:41 No significant changes Electronically Signed On 01-21-2023 10:32:19 CDT by Spencer Mas M.D. [email or web address].jobsite123[facility].[employer]/store/[id number]
[2023-01-21] VITALS (103 sets, daily range): BP systolic 70–135; BP diastolic 39–95; PULSE 38–82; RESP 17–27; TEMP 36.4; O2SAT 92–100
[2023-01-21 01:02] LABS: Alanine Aminotransferase 13 U/L (0-41); Albumin Level 3.3 g/dL (3.5-5.2); Alkaline Phosphatase 36 U/L (40-130); Anion Gap 13.9 (5-19); Aspartate Amino Transferase 10 U/L (0-40); Blood Urea Nitrogen 11 mg/dL (6-20); Calcium 7.4 mg/dL (8.5-10.5); Carbon Dioxide 16 mmol/L (22-29); Chloride 104 mmol/L (98-107); Globulin 2.2 g/dL (1.3-4.6); Glomerular Filtration Rate 93.9 mL/min (90-130); Glucose 199 mg/dL (65-115); Magnesium 1.7 mg/dL (1.7-2.3); Osmolality Calculated 275 mOsm/kg (285-295); Potassium 3.9 mmol/L (3.5-5.1); Sodium 130 mmol/L (136-145); Total Bilirubin 0.6 mg/dL (0.15-1.2); Total Protein 5.5 g/dL (6.6-8.7)
[2023-01-21 01:14] LABS: Glucose Point of Care 196 mg/dL (70-110)
[2023-01-21 01:44] LABS: Glucose Point of Care 204 mg/dL (70-110)
--- NOTE | 2023-01-21 01:55 | PM.CCNAC ---
Critical Care Event Note Patient has been persistently bradycardic, sinus bradycardia down to 35 heart rate. EKG checked. Sinus bradycardia no significant changes. Phenylephrine has been weaned off. vasopressin is off. Levophed is at 20 mics, epinephrine is at 9 at this time. Dopamine drip running at 5. patient somewhat responsive and starting to wake up. I will hold off on any sedative agent at this time as he does appear comfortable. We will keep him on fentanyl for now. Discussed with poison control. They have recommended that we continue infusion of glucagon to titrate to hemodynamic parameters. Earlier today to provide was not available but we have an ample supply at this time. 2.5 mg IV push given once with immediate heart rate effect seen up to heart rate of 62. We will start infusion at 50 mics per KG per hour as per protocol 3-5 mils per hour to titrate to heart rate of 50-55. We will check CMP every 6 hours to monitor for calcium, potassium. Continue to wean pressors as able. I may consider temporary transcutaneous pacing if patient remains persistently low however we are seeing good response with glucagon for now. We will continue to monitor blood sugars every hour. Will monitor hyperglycemia q1H. Corrected calcium 8.0. Will give 1 g calcium gluconate IV push at this time. Continue to wean pressors. The high probability of a clinically significant, sudden or life threatening deterioration of the patient's [cardiovascular] system(s) required my full and direct attention, intervention and personal management. The critical care time is as shown. This time is in addition to time spent performing any reported procedures but includes the following: [x] Data and vital sign review and interpretation [x] Patient assessment, examination and intervention [x] Documentation [x] Medication orders and management Discussed several times with RN regarding management and followed up on pt multiple times through the night. Critical Care Time Code activated: No Critical Care Time (min): 30 Procedures Arterial Line Size (Gauge): 18 Coding Level of Care Code Acute Code for Chg Fwd Time Spent (min) 30
[2023-01-21] MEDS: calcium gluconate 0.1 gm/mL 10% SDV 10mL 1 GM IVP (02:19)
[2023-01-21] MEDS: piperacillin-tazobactam 3.375 GM in sodium chloride 0.9% (plus) 50 ML IV ×3 (02:20→19:14)
[2023-01-21] MEDS: heparin 5,000 unit/mL INJ 1 mL 5000 UNIT SUBCUT ×2 (02:20→15:29)
[2023-01-21 02:43] LABS: Glucose Point of Care 164 mg/dL (70-110)
--- NOTE | 2023-01-21 03:15 | PC.NURSE ---
Addendum entered by Staci Ontiveros RN 01/21/23 03:20: Witnessed waste of 26 ml Fentanyl drip with YEIMI Goodwin. Original Note: 01/20/2023-2130 wasted 26ml of Fentanyl gtt. Witnessed by Staci Ontiveros RN.
[2023-01-21] MEDS: hydrocortisone 100 mg/2 mL SDV IVP ×3 (04:20→18:03)
[2023-01-21 04:28] LABS: Glucose Point of Care 122 mg/dL (70-110)
[2023-01-21 06:00] LABS: ABG PCO2 32.6 mmHg (35-45); ABG PH Result 7.33 (7.35-7.45); Alveolar-Arterial Oxygen Gradi 17.9 mmHg (5-10); Base Excess ABG -7.8 mmol/L (-2.0-2.0); Blood Gas Operator Identificat JB; Blood Gas Sample Site Not specified; Blood Gas Sample Type Arterial; Blood Gas Tidal Volume 0.52; Carboxyhemoglobin 0.9 %THgb (0.4-20.1); HCO3 ABG 17.1 mmol/L (22-26); HGB O2 Sat 96.8 % (95-100); Ionized Calcium Level - ABG 1.3 mmol/L (1.1-1.4); Methemoglobin 0.9 % (0.4-1.5); Oxygen Device VENT; Oxygen Saturation ABG 98.5; Potassium Level - ABG 3.4 mmol/L (3.5-5.0)
[2023-01-21 06:00] LABS: Basophils % 0.2 %; Eosinophils # 0.1 10^3/uL (0.0-0.8); Eosinophils % 0.3 %; Hematocrit 40.8 % (42.0-52.0); Hemoglobin 13.7 g/dL (11.7-16.6); Lymphocytes # 1.4 10^3/uL (0.8-4.8); Lymphocytes % 7.9 %; Mean Corpuscular HGB Conc 33.6 g/dL (30.0-36.0); Mean Corpuscular Hemoglobin 32.6 pg (28.0-34.0); Mean Corpuscular Volume 97.1 fl (80-94); Mean Platelet Volume 9.3 fL (7.4-10.4); Monocytes # 1.1 10^3/uL (0.2-0.9); Monocytes % 6.4 %; Neutrophils # 14.85 10^3/uL (1.8-7.7); Neutrophils % 84.7 %; Nucleated Red Blood Cells % 0 %; Platelet Count 229 10^3/cmm (130-400); Red Cell Distribution Width 13.2 % (12.1-15.1); White Blood Count 17.5 10^3/uL (4.0-10.0)
[2023-01-21] MEDS: norepinephrine 8 MG in dextrose 5 % 500 ML 15.24 MG IV (06:25)
[2023-01-21 06:26] LABS: Alanine Aminotransferase 13 U/L (0-41); Albumin Level 3.6 g/dL (3.5-5.2); Alkaline Phosphatase 41 U/L (40-130); Anion Gap 13.4 (5-19); Aspartate Amino Transferase 12 U/L (0-40); Blood Urea Nitrogen 12 mg/dL (6-20); Calcium 8.5 mg/dL (8.5-10.5); Carbon Dioxide 16 mmol/L (22-29); Chloride 102 mmol/L (98-107); Globulin 2.4 g/dL (1.3-4.6); Glomerular Filtration Rate 125.5 mL/min (90-130); Glucose 82 mg/dL (65-115); Osmolality Calculated 265 mOsm/kg (285-295); Potassium 3.4 mmol/L (3.5-5.1); Sodium 128 mmol/L (136-145); Total Bilirubin 0.6 mg/dL (0.15-1.2)
[2023-01-21] MEDS: midazolam 1 mg/mL INJ 2 mL 2 MG IVP (06:37)
[2023-01-21 06:41] LABS: Glucose Point of Care 93 mg/dL (70-110)
[2023-01-21 07:22] LABS: Glucose Point of Care 90 mg/dL (70-110)
[2023-01-21 08:07] LABS: Glucose Point of Care 107 mg/dL (70-110)
--- NOTE | 2023-01-21 08:33 | PC.NURSE ---
here pt awake and restless,, pulling at et tube and other lines . encouged both to relax tearful and attempting to show pt alexisos on phone ask to let rest and .. urine output of 1800 noted .... Doctor called and fent off placed on cpap at this time
[2023-01-21 09:29] LABS: Glucose Point of Care 124 mg/dL (70-110)
--- NOTE | 2023-01-21 09:35 | PC.NURSE ---
pt awake responding and verbal extubated and placed on o2 at 2 l nc kicking legs and sitting up in bed .. ice chips po taken no difficulty swallowing pt verbal scratchy voice .. responding to all commands.
--- NOTE | 2023-01-21 09:45 | PC.NURSE ---
continue to give ice chips po talking with pt about occurances ... ask if he remembers taking pills, and he stated in front of resp . that he didnt take the pill.. continue at bedside with ice chips remains restless attempting to get out of bed . asked if remembers anything and related something about but voice scratchy , asked if wanted to see nodded yes
--- NOTE | 2023-01-21 10:00 | PC.NURSE ---
allowed in for short time after extubation informed them both of 96 hour hold and would be only visiting from 3 to 4 both understand and cooperative .. sitter at bedside pt stable and restless
[2023-01-21 10:01] LABS: Glucose Point of Care 123 mg/dL (70-110)
[2023-01-21] MEDS: pantoprazole 40 mg SDV IVP (10:16)
--- NOTE | 2023-01-21 10:45 | PC.NURSE ---
poision control called and talked through case and agree with weaning off glucogon by this afternoon and restarting levophed if needed for pressure Dr Church called with orders to proceed
--- NOTE | 2023-01-21 11:20 | PC.RESP ---
Pt became less responsive. Dr. Church called. Pt will not wake to sternal rub. Asked about intubating pt and Dr. Church refused to intubate. Will continue to monitor.
[2023-01-21 11:25] LABS: Glucose Point of Care 151 mg/dL (70-110)
--- NOTE | 2023-01-21 11:28 | PC.NURSE ---
Patient was arousing to stimuli and trying to climb out of bed, post extubation. Patients visited at bedside at 1000. 's back was turned to patient sitter while she was visiting. kissed patient and made statements such as baby, God saved you. You are a miracle. made statements to patient about him being sleepy multiple times while she was here. asked patient if she needed to leave so he could rest. then whispered to patient, but sitter was unable to hear what was said. kissed patient again and told him she had to leave, but would be back at 1500. left crying at 1025. Ten minutes after left, patient became unarousable to sternal rub by bedside nurse.
--- NOTE | 2023-01-21 11:30 | PC.NURSE ---
unable to wake pt even to sternal rub,, noted decrease pressures restarted levophed gtt and called doctor and superviser .. rt here at bedside ... narcan given x 2
[2023-01-21] MEDS: naloxone 0.4 mg/ml SDV IVP ×2 (11:35)
[2023-01-21 11:56] LABS: Amphetamines Screen Urine Negative (Negative); Barbiturates Screen Urine Negative (Negative); Benzodiazepines Screen Urine Positive (Negative); Cocaine Screen Urine Negative (Negative); Opiate Screen Urine Negative (Negative); PCP Screen Urine Negative (Negative); THC Screen Urine Negative (Negative)
--- NOTE | 2023-01-21 12:11 | PC.NURSE ---
1110 left room noted pt resting ...
--- NOTE | 2023-01-21 12:13 | PC.NURSE ---
remains very lethagic respond only to painful stimuli elevated bed to assist protect air way Doctor here prior aware of status at this time.. sitter at bedside .. continue to monitor vs
[2023-01-21 12:53] LABS: Alanine Aminotransferase 14 U/L (0-41); Albumin Level 3.3 g/dL (3.5-5.2); Alkaline Phosphatase 37 U/L (40-130); Anion Gap 15.5 (5-19); Aspartate Amino Transferase 13 U/L (0-40); Blood Urea Nitrogen 15 mg/dL (6-20); Calcium 8.4 mg/dL (8.5-10.5); Carbon Dioxide 16 mmol/L (22-29); Chloride 107 mmol/L (98-107); Globulin 2.4 g/dL (1.3-4.6); Glomerular Filtration Rate 107.6 mL/min (90-130); Glucose 136 mg/dL (65-115); Osmolality Calculated 283 mOsm/kg (285-295); Potassium 3.5 mmol/L (3.5-5.1); Sodium 135 mmol/L (136-145); Total Bilirubin 0.5 mg/dL (0.15-1.2); Total Protein 5.7 g/dL (6.6-8.7)
--- NOTE | 2023-01-21 13:23 | P.PN_ITS ---
Subjective Medications: Medication Review Details: Generic Name Dose Route Start Last Admin Trade Name Sarah PRN Reason Stop Dose Admin Heparin Sodium (Po rcine) 5,000 unit 01/20/23 02:45 01/21/23 02:20 Heparin 5,000 Un it/Ml Inj 1 Ml SUBCUT 5,000 unit Q12H NUBIA Administration Hydrocortisone Sod ium Succinate 100 mg 01/20/23 17:15 01/21/23 10:17 Hydrocortisone 1 00 Mg/2 Ml Sdv IVP 100 mg Q6H NUBIA Administration Fentanyl 1,000 mcg / Sodium 100 mls @ 0 mls/h r 01/19/23 23:45 01/21/23 08:38 Chloride IV 0 mcg/hr .Q0M NUBIA 0 mls/hr Titration Protocol Per Protocol Vasopressin 100 un it/ Sodium 100 mls @ 0 mls/h r 01/20/23 02:30 01/21/23 01:25 Chloride IV 0 unit/min .Q0M NUBIA 0 mls/hr Titration Protocol Per Protocol Dopamine HCl/Dextr ose 400 mg in 250 mls @ 14.458 mls/hr 01/20/23 02:45 01/21/23 04:52 Intropin Drip IV 0 mcg/kg/min CONT NUBIA 0 mls/hr Titration Protocol 5 MCG/KG/MIN Piperacillin Sod/T azobactam 50 mls @ 12.5 mls /hr 01/20/23 03:00 01/21/23 10:16 Sod 3.375 gm/ So dium Chloride IV 12.5 mls/hr Q8H NUBIA Administration Sodium Chloride 500 mls @ 0 mls/h r 01/20/23 04:00 01/20/23 05:12 Sodium Chloride 0.9% XX 3 mls/hr .Q0M NUBIA Administration As Directed Epinephrine HCl 2. 5 mg/ Sodium 252.5 mls @ 0 mls /hr 01/20/23 07:45 01/21/23 04:40 Chloride IV 0 mcg/min .Q0M NUBIA 0 mls/hr Titration Protocol Per Protocol Phenylephrine HCl 25 mg/ 252.5 mls @ 0 mls /hr 01/20/23 07:45 01/20/23 21:30 Sodium Chloride IV 0 mcg/min .Q0M NUBIA 0 mls/hr Titration Protocol Per Protocol Norepinephrine Bit artrate 8 mg 508 mls @ 0 mls/h r 01/20/23 14:00 01/21/23 06:25 / Dextrose IV 4 mcg/min .Q0M NUBIA 15.24 mls/hr Administration Protocol Per Protocol glucagon 8 mg/ Dex trose 108 mls @ 63.164 mls/hr 01/21/23 01:15 01/21/23 12:30 IV 22.16 mcg/kg/hr .Q1H43M NUBIA 28 mls/hr Infusion 50 MCG/KG/HR Midazolam HCl 2 mg 01/20/23 02:13 01/21/23 06:37 Midazolam 1 Mg/M l Inj 2 Ml IVP 2 mg Q2H PRN Administration AGITATION Pantoprazole Sodiu m 40 mg 01/20/23 09:00 01/21/23 10:16 Pantoprazole 40 Mg Sdv IVP 40 mg DAILY NUBIA Administration Vitals/I&O/Wt Last Vital Signs Temp 97.5 F L 01/21/23 04:30 Pulse 60 01/21/23 12:15 Resp 21 H 01/21/23 12:15 BP 88/59 01/21/23 12:15 Pulse Ox 97 01/21/23 12:15 O2 Del Method Mechanical Ventilation 01/20/23 07:43 FiO2 30 01/21/23 12:00 01/20/23 01/21/23 01/21/23 22:59 06:59 14:59 Intake Total 3360.377 / 7926.279 1508.777 / 9435.056 201.717 / 201.717 Output Total 1000 / 1000 1550 / 2550 2650 / 2650 Balance 2360.377 / 6926.279 -41.223 / 6885.056 -2448.283 / -2448.283 Weight last 48 hrs Weight 93.576 kg Weight 93.576 kg Weight 77.111 kg Physical Exam HENMT: COMMON NORMALS: normocephalic and atraumatic HEAD & SCALP: normocephalic and atraumatic Resp: COMMON NORMALS: clear to auscultation bilaterally AUSCULTATION: clear to auscultation bilaterally Cardio: COMMON NORMALS: regular rate, regular rhythm, S1 normal heart sound present, S2 normal heart sound present, No gallops present (Cardio), No murmurs present (Cardio), No rub (Cardio) and Peripheral pulses 2+ throughout RATE: regular rate RHYTHM: regular rhythm HEART SOUNDS: S1 normal heart sound present and S2 normal heart sound present PERIPHERAL PULSES: Peripheral pulse s 2+ throughout GI: COMMON NORMALS: Normal to inspection, nondistended, normoactive bowel sounds present, Soft to palpation, non-tender, No hepatosplenomegaly present and no masses AUSCULTATION: Yes normoactive bowel sounds PALPATION: Yes Soft to palpation and Yes No hepatosplenomegaly present RECTAL EXAM: Yes deferred Extremity: COMMON NORMALS: no clubbing, cyanosis or edema and no pedal edema Urinary Catheter Management: Perales: Cath Placed During This Visit: yes Reason for Continuing Indwelling Catheter: Accurate Measurement of Urinary Output in Critically Ill Patients Urinary Catheter Date of Insertion: 01/20/23 Urinary Catheter Time of Insertion: 00:30 Data 01/21/23 05:45 01/21/23 12:04 Micro: Microbiology 01/20/23 08:40 Blood Culture - Preliminary Blood NEGATIVE TO DATE 01/20/23 08:30 Blood Culture - Preliminary Blood NEGATIVE TO DATE 01/20/23 08:20 Gram Stain - Final Sputum - Endotracheal Tube Aspirate A&P Assessment and plan (1) Suicide attempt by multiple drug overdose: (2) Acute alteration in mental status: (3) Acute respiratory failure with hypoxia: (4) Acute hypotension: (5) Shock: (6) Acute kidney injury: (7) Hypertension: (8) Anxiety: (9) Depression: (10) Sinus bradycardia: Plan Assessment: #Multiple drug overdose #Suicide attempt #Shock secondary to all the above #Possible aspiration event #Anxiety, mild depression #History of hypertension #Polypharmacy #Acute kidney injury. Plan 37-year-old male with past medical history of drug abuse, anxiety depression, was brought in from home after, intentional suicide attempt, when he overdosed with multiple medications Which includes duloxetine, gabapentin, hydrochlorothiazide lisinopril propanolol, tizanidine, clonidine, when he came to the hospital he was, he intubated, he was severely hypotensive, was bolused with around 6 L IV fluid, was on multiple vasopressors (Levophed, epinephrine, phenylephrine, dopamine, vasopressin), he was also empirically kept on broad-spectrum antibiotics, blood cultures so far has been negative, CT head without contrast no acute intracranial pathology, x-ray chest: Is suggestive of bilateral basal atelectasis or bilateral basilar pneumonitis. U tox is positive for benzodiazepines. Patient initially received glucagon, on admission, but later on the night of admission, when supply of glucagon was sufficient enough, he was placed on glucagon drip, with monitoring of fingerstick glucose every hour, serial monitoring of CBC CMP electrolytes were done, patient was, successfully extubated, on 01/21, after he was alert awake following commands, transiently for short period of time all the vasopressor drips were stopped, But sometime later Levophed had to be restarted. Postextubation patient was doing fine, but unfortunately appears that when his came to meet him, he again consumed some unknown substance, after which he again became extremely drowsy, only awakening to very painful stimulus, he did receive 2 doses of Narcan with no response.Currently he is able to protect his airways, he is hemodynamically stable, for now we will monitor him. Poison control on board. CODE STATUS: Full code DVT prophylaxis on subcu heparin Attestations Medical Necessity Statement*: Patient is to be in hospital for management of his intentional drug overdose. Procedures Arterial Line Size (Gauge): 18 Coding Level of Care Code 22247 Diagnoses Suicide attempt by multiple drug overdose T50.912A Acute alteration in mental status R41.82 Acute respiratory failure with hypoxia J96.01 Acute hypotension I95.9 Shock R57.9 Acute kidney injury N17.9 Hypertension I10 Anxiety F41.9 Depression F32.A Sinus bradycardia R00.1
[2023-01-21 13:30] LABS: Glucose Point of Care 165 mg/dL (70-110)
[2023-01-21 14:09] LABS: Glucose Point of Care 176 mg/dL (70-110)
[2023-01-21] MEDS: vancomycin 1,500 MG/300 ML PIGGYBACK 250 MG IV (15:24)
--- NOTE | 2023-01-21 16:09 | PC.NURSE ---
remains very lethargic and difficult to awaken , sitter at bedside monitor pt closely .. blood pressure remains slightly low. on levophed gtt at this time. showed up at 3 to see pt explained that we were limiting visitors at this time... explained that had taken unresponsive after her visit and was needing to monitor . .. explained to come tommorow .. later recieved call from pts sister who is doctor in [place] stating that she had gotten call from renate that he could have no visitor , was on other line with renate and verified that is was ok to talk to sister Clary Shankar [phone] . after gave her update status she related that her brother had met this lady in rehab and had been less than year and that he had been trying to leave her and had went to his mothers with tent and had to return to his home. and that she had to block them because they kept posting for money and start go fund me pages ect... also call mother Carlita Regalado [phone] and assured her that she could come see son. She also offered that Piyush had been trying to leave and that she is on parole in [facility] nuclear medicine officer [place] . assured family that i would pass on but that they could come see him
[2023-01-21 16:17] LABS: Glucose Point of Care 147 mg/dL (70-110)
[2023-01-21 16:54] LABS: Glucose Point of Care 153 mg/dL (70-110)
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
[2023-01-21 18:46] LABS: Alanine Aminotransferase 14 U/L (0-41); Albumin Level 3.5 g/dL (3.5-5.2); Alkaline Phosphatase 39 U/L (40-130); Anion Gap 16.5 (5-19); Aspartate Amino Transferase 14 U/L (0-40); Blood Urea Nitrogen 16 mg/dL (6-20); Calcium 7.8 mg/dL (8.5-10.5); Carbon Dioxide 15 mmol/L (22-29); Chloride 102 mmol/L (98-107); Globulin 2.1 g/dL (1.3-4.6); Glomerular Filtration Rate 125.5 mL/min (90-130); Glucose 140 mg/dL (65-115); Osmolality Calculated 273 mOsm/kg (285-295); Potassium 3.5 mmol/L (3.5-5.1); Sodium 130 mmol/L (136-145); Total Bilirubin 0.4 mg/dL (0.15-1.2); Total Protein 5.6 g/dL (6.6-8.7)
[2023-01-22] VITALS (79 sets, daily range): BP systolic 81–142; BP diastolic 45–97; PULSE 47–81; RESP 9–24; TEMP 35.2–37.2; O2SAT 92–100
[2023-01-22] MEDS: hydrocortisone 100 mg/2 mL SDV IVP ×3 (00:09→11:02)
[2023-01-22] MEDS: vancomycin 1,500 MG/300 ML PIGGYBACK 250 MG IV ×2 (00:38→14:16)
[2023-01-22 01:49] LABS: Alanine Aminotransferase 15 U/L (0-41); Albumin Level 3.5 g/dL (3.5-5.2); Alkaline Phosphatase 39 U/L (40-130); Aspartate Amino Transferase 15 U/L (0-40); Blood Urea Nitrogen 18 mg/dL (6-20); Calcium 8.6 mg/dL (8.5-10.5); Carbon Dioxide 14 mmol/L (22-29); Chloride 101 mmol/L (98-107); Globulin 2.5 g/dL (1.3-4.6); Glomerular Filtration Rate 83.2 mL/min (90-130); Glucose 95 mg/dL (65-115); Osmolality Calculated 276 mOsm/kg (285-295); Sodium 132 mmol/L (136-145); Total Bilirubin 0.3 mg/dL (0.15-1.2)
[2023-01-22] MEDS: etomidate 2 mg/mL INJ SDV 10 mL 30 MG IVP (02:03)
[2023-01-22] MEDS: succinylcholine 20 mg/mL SDV 10mL 150 MG IVP (02:05)
--- NOTE | 2023-01-22 02:22 | XRR_ITS ---
PROCEDURE INFORMATION: Exam: XR Chest Exam date and time: 01/22/2023 2:27 AM Age: 37 years old Clinical indication: Device placement; Ett placement (vent status); Patient HX: Et tube and og tube placement; Additional info: Et tube placement TECHNIQUE: Imaging protocol: Radiologic exam of the chest. Views: 1 view. COMPARISON: CR (CHEST, ) 01/20/2023 3:22 AM FINDINGS: Tubes, catheters and devices: Lines and tubes unchanged. Lungs: Bugq-powdhtj-xkoh-right lung base hazy densities have increased. Pleural spaces: No pneumothorax. Heart/Mediastinum: Unchanged mild cardiomegaly. Bones/joints: L1 kyphoplasty. XR/XR chest 1V portable [id number] IMPRESSION: Increasing areas of vlef-neiglxb-xbda-right lung base atelectasis or airspace disease with small effusions.
--- NOTE | 2023-01-22 03:19 | CTR_ITS ---
PROCEDURE INFORMATION: Exam: CT Head Without Contrast Exam date and time: 01/22/2023 10:09 AM Age: 37 years old Clinical indication: Other: Unresponsive TECHNIQUE: Imaging protocol: Computed tomography of the head without contrast. Radiation optimization: All CT scans at this facility use at least one of these dose optimization techniques: automated exposure control; mA and/or kV adjustment per patient size (includes targeted exams where dose is matched to clinical indication); or iterative reconstruction. REPORTING DATA: Count of CT and Cardiac NM exams in prior 12 months: This patient has received 3 known CTs and 0 known cardiac nuclear medicine studies in the 12 months prior to the current study. COMPARISON: CT head wo con* [id number] 01/20/2023 1:18 AM RADIATION DOSE METRICS: Total DLP (mGy-cm): 845.94 FINDINGS: Brain: No acute hemorrhage identified. No large territorial areas of hypoattenuation concerning for ischemic infarct identified. No intracranial mass effect. Cerebral ventricles: The ventricles are within normal limits. Paranasal sinuses: The visualized sinuses are unremarkable. Mastoid air cells: The visualized mastoid air cells are well aerated. Bones/joints: The osseous structures are intact. Soft tissues: Unremarkable. CT/CT head wo con* [id number] IMPRESSION: No acute intracranial abnormality.
--- NOTE | 2023-01-22 03:25 | PM.CCNAC ---
Critical Care Event Note Earlier at start of shift, patient able to open eyes to verbal cues and follow some commands, appeared to be able to protect his airway. I saw him at bedside. No new orders given. Around 2.30 PM, patient became totally unresponsive to painful stimuli and sternal rub. He was intubated for ER protection. ER doc, Dr. Lopez at bedside intubated patient. Mild laryngeal edema noted during placement of ET tube. Fentayl gtt started. He is on levophed 4 mics. Art line to be re-calibrated and zeroed. CT head w/o contrast ordered. CMP, cbc pending. ABG pending at this time. Post intubation xray reviewed. OG tube placed. The high probability of a clinically significant, sudden or life threatening deterioration of the patient's [cardiovascular] system(s) required my full and direct attention, intervention and personal management. The critical care time is as shown. This time is in addition to time spent performing any reported procedures but includes the following: [x] Data and vital sign review and interpretation [x] Patient assessment, examination and intervention [x] Documentation [x] Medication orders and management Patient was physically seen at bedside x2 tonight. I was present during intubation. Talked with RN several times through the night for management. Critical Care Time Code activated: No Critical Care Time (min): 35 Procedures Arterial Line Size (Gauge): 18 Coding Level of Care Code Acute Code for Chg Fwd
[2023-01-22 03:33] LABS: ABG PCO2 31.5 mmHg (35-45); Alveolar-Arterial Oxygen Gradi 22.4 mmHg (5-10); Arterial Blood Gas Hematocrit 40.4 % (42-52); Base Excess ABG -9.7 mmol/L (-2.0-2.0); Blood Gas Operator Identificat JB; Blood Gas Sample Site Not specified; Blood Gas Sample Type Arterial; Blood Gas Tidal Volume 0.52; HCO3 ABG 15.5 mmol/L (22-26); HGB O2 Sat 92.2 % (95-100); Ionized Calcium Level - ABG 1.2 mmol/L (1.1-1.4); Methemoglobin 0.7 % (0.4-1.5); Oxygen Device VENT; Oxygen Saturation ABG 93.8; PO2 ABG 71.6 mmHg (80.0-100.0); Potassium Level - ABG 4.4 mmol/L (3.5-5.0); Total Hemoglobin 13.2 g/dL (14-18)
[2023-01-22] MEDS: heparin 5,000 unit/mL INJ 1 mL 5000 UNIT SUBCUT ×2 (03:35→14:17)
[2023-01-22 03:36] LABS: Glucose Point of Care 118 mg/dL (70-110)
[2023-01-22] MEDS: piperacillin-tazobactam 3.375 GM in sodium chloride 0.9% (plus) 50 ML IV ×3 (03:36→18:20)
[2023-01-22] MEDS: atropine 0.1 mg/mL Syr 10 mL 1 MG IVP (04:03)
[2023-01-22] MEDS: DOPamine drip 400 MG/250 ML PREMIX 14.46 MG IV ×2 (04:07→18:51)
[2023-01-22] MEDS: sodium bicarbonate 8.4% 1 mEq/mL 50mL Syr 50 MEQ IVP (04:47)
[2023-01-22 05:02] LABS: Lactic Sepsis W/Reflex 0.9 mmol/L (0.5-2.2)
[2023-01-22] MEDS: sodium bicarbonate 50 MEQ in sodium chloride 0.45% 1,000 ML 75 MEQ IV ×2 (05:02→19:05)
[2023-01-22] MEDS: calcium gluconate 0.1 gm/mL 10% SDV 10mL 1 GM IVP (05:02)
--- NOTE | 2023-01-22 05:27 | NUR.SHIFT ---
0200 Pt has stopped responding to verbal and painful stimuli. called and intubation procedure initated.
--- NOTE | 2023-01-22 05:28 | PC.NURSE ---
Intubation Pt given meds as ordered (see MAR) for procedure. Intubation complete, CO2 color change noted and breath sounds ausculated. Intubated at 0205, 8.0/25 at lip. Vent settings 14/520/40/6. Pt tolerated procedure well.
--- NOTE | 2023-01-22 05:30 | PC.NURSE ---
0400 event note getting patient ready for stat CT scan as ordered, when RT began bagging for transfer, pt became bradycardic. MD called and CT placed on hold for now. Pt continued to rashaun and BP decreasing. Administered 1 amp bicarb and 1 mg atropine as ordered. Levophed increased, dopamine started and titrated. Pt givien 1 gram calcium, started on Vaso gtt, and bicarb gtt as ordered. VS stabilized. Pt found to be hypothermic, warming blanket placed on patient. Attempted to call Kiara () and was unable to reach her, Carlita (mom) called and updated on pt condition.
[2023-01-22 06:22] LABS: Alanine Aminotransferase 20 U/L (0-41); Albumin Level 3.7 g/dL (3.5-5.2); Alkaline Phosphatase 41 U/L (40-130); Anion Gap 19.3 (5-19); Aspartate Amino Transferase 36 U/L (0-40); Blood Urea Nitrogen 20 mg/dL (6-20); Calcium 9.1 mg/dL (8.5-10.5); Carbon Dioxide 17 mmol/L (22-29); Chloride 101 mmol/L (98-107); Globulin 2.6 g/dL (1.3-4.6); Glomerular Filtration Rate 83.2 mL/min (90-130); Glucose 144 mg/dL (65-115); Magnesium 2.2 mg/dL (1.7-2.3); Osmolality Calculated 281 mOsm/kg (285-295); Potassium 4.3 mmol/L (3.5-5.1); Sodium 133 mmol/L (136-145); Total Bilirubin 0.2 mg/dL (0.15-1.2); Total Protein 6.3 g/dL (6.6-8.7)
--- NOTE | 2023-01-22 06:53 | PC.NURSE ---
2199 Spoke with Fanta at poison control, information received that patient took enough seroquel to cause anticholenergic effects and he could hold onto medication and be in and out of a sedative state for 5-7 days. Also pointed out that effect will also apply to the additional medications he took. She stated they will continue to follow his case.
[2023-01-22 07:57] LABS: Basophils % 0.2 %; Eosinophils % 0.2 %; Hemoglobin 13.9 g/dL (11.7-16.6); Lymphocytes # 2.4 10^3/uL (0.8-4.8); Lymphocytes % 13.7 %; Mean Corpuscular HGB Conc 33.9 g/dL (30.0-36.0); Mean Corpuscular Hemoglobin 32.6 pg (28.0-34.0); Mean Platelet Volume 10.5 fL (7.4-10.4); Monocytes # 1.2 10^3/uL (0.2-0.9); Neutrophils # 13.43 10^3/uL (1.8-7.7); Neutrophils % 78.2 %; Nucleated Red Blood Cells % 0 %; Platelet Count 258 10^3/cmm (130-400); Red Blood Count 4.27 10^6/uL (4.1-5.3); Red Cell Distribution Width 13.2 % (12.1-15.1); White Blood Count 17.2 10^3/uL (4.0-10.0)
--- NOTE | 2023-01-22 08:38 | CTR_ITS ---
PROCEDURE INFORMATION: Exam: CT Chest Without Contrast; Diagnostic Exam date and time: 01/22/2023 10:13 AM Age: 37 years old Clinical indication: Abdominal tenderness; Dyspnea; Additional info: Abd TECHNIQUE: Imaging protocol: Diagnostic computed tomography of the chest without contrast. Radiation optimization: All CT scans at this facility use at least one of these dose optimization techniques: automated exposure control; mA and/or kV adjustment per patient size (includes targeted exams where dose is matched to clinical indication); or iterative reconstruction. REPORTING DATA: Count of CT and Cardiac NM exams in prior 12 months: This patient has received 3 known CTs and 0 known cardiac nuclear medicine studies in the 12 months prior to the current study. COMPARISON: CR (CHEST, ) 01/22/2023 2:27 AM RADIATION DOSE METRICS: Total DLP (mGy-cm): 1132.78 FINDINGS: Tubes, catheters and devices: Endotracheal tube approximately 1 cm above the martha. Right-sided central venous line noted with the distal tip at the cavoatrial junction. Lungs: Dependent bibasilar consolidation. Pleural spaces: No pleural effusion. No pneumothorax. Heart: The heart is within normal limits for size. There is no evidence of pericardial abnormality. Coronary arteries: No significant coronary artery calcifications identified. Lymph nodes: The supraclavicular region appears normal. There are no enlarged lymph nodes in the axilla. There are no enlarged lymph nodes in the mediastinal or hilar regions. Vasculature: Trace air in the nondependent portion of the main pulmonary artery likely related to intravenous access. Bones/joints: Unremarkable. Soft tissues: Unremarkable. PROCEDURE INFORMATION: Exam: CT Abdomen And Pelvis Without Contrast Exam date and time: 01/22/2023 10:13 AM Age: 37 years old Clinical indication: Abdominal tenderness; Dyspnea; Additional info: Abd TECHNIQUE: Imaging protocol: Computed tomography of the abdomen and pelvis without contrast. Radiation optimization: All CT scans at this facility use at least one of these dose optimization techniques: automated exposure control; mA and/or kV adjustment per patient size (includes targeted exams where dose is matched to clinical indication); or iterative reconstruction. REPORTING DATA: Count of CT and Cardiac NM exams in prior 12 months: This patient has received 3 known CTs and 0 known cardiac nuclear medicine studies in the 12 months prior to the current study. COMPARISON: CT abdomen pelvis w con* [id number] 12/04/2022 12:04 PM RADIATION DOSE METRICS: Total DLP (mGy-cm): 1132.78 FINDINGS: Tubes, catheters and devices: Enteric tube with the distal tip within the stomach lumen. Liver: The liver is normal in size and contour. Gallbladder and bile ducts: The gallbladder appears unremarkable. No intra- or extra-hepatic biliary ductal dilatation. Pancreas: The pancreas appears normal. Spleen: The spleen appears normal. Adrenal glands: The adrenals appear normal. Kidneys and ureters: The kidneys empty into non-dilated ureters. No renal or ureteral stones are identified. No perinephric or periureteral fat tissue stranding is identified. Stomach and bowel: The stomach appears unremarkable. The small bowel loops are not abnormally dilated. The large bowel loops are not abnormally dilated. Minimal wall thickening in the ascending colon with adjacent fat stranding and fluid in the paracolic gutter. Appendix: Appendix is not readily identified. Intraperitoneal space: Free fluid in the dependent portion of the pelvis. Fluid in the right paracolic gutter. Vasculature: The aorta is nonaneurysmal. The IVC appears normal. Lymph nodes: There are no enlarged lymph nodes. Urinary bladder: Perales catheter noted within the urinary bladder which is non-distended. Reproductive: Unremarkable as visualized. Bones/joints: Post vertebroplasty changes at L1. Soft tissues: Unremarkable. CT/[place] [id number] IMPRESSION: Dependent bibasilar consolidation, could be consistent with atelectasis versus pneumonia. IMPRESSION: Findings likely consistent with right-sided colitis. COMMENTS: Evaluation of solid organs and vascular structures is limited as no IV contrast was administered.
[2023-01-22] MEDS: norepinephrine 8 MG in dextrose 5 % 500 ML 53.34 MG IV (09:52)
[2023-01-22] MEDS: pantoprazole 40 mg SDV IVP (09:53)
[2023-01-22] MEDS: DOPamine drip 400 MG/250 ML PREMIX 28.92 MG IV (09:55)
--- NOTE | 2023-01-22 11:07 | PM.PN ---
Subjective Subjective: Patient was seen and examined this morning, he had to be intubated last night, as he was not able to protect the airways, overnight he also went on multiple pressors again.Was also hypothermic this morning. Medications: Medication Review Details: Generic Name Dose Route Start Last Admin Trade Name Sridharq PRN Reason Stop Dose Admin Heparin Sodium (Po rcine) 5,000 unit 01/20/23 02:45 01/22/23 03:35 Heparin 5,000 Un it/Ml Inj 1 Ml SUBCUT 5,000 unit Q12H NUBIA Administration Hydrocortisone Sod ium Succinate 100 mg 01/20/23 17:15 01/22/23 11:02 Hydrocortisone 1 00 Mg/2 Ml Sdv IVP 100 mg Q6H NUBIA Administration Fentanyl 1,000 mcg / Sodium 100 mls @ 0 mls/h r 01/19/23 23:45 01/22/23 02:10 Chloride IV 25 mcg/hr .Q0M NUBIA 2.5 mls/hr Administration Protocol Per Protocol Vasopressin 100 un it/ Sodium 100 mls @ 0 mls/h r 01/20/23 02:30 01/22/23 05:03 Chloride IV 0.04 unit/min .Q0M NUBIA 2.4 mls/hr Administration Protocol Per Protocol Dopamine HCl/Dextr ose 400 mg in 250 mls @ 14.458 mls/hr 01/20/23 02:45 01/22/23 09:55 Intropin Drip IV 10 mcg/kg/min CONT NUBIA 28.92 mls/hr Administration Protocol 5 MCG/KG/MIN Piperacillin Sod/T azobactam 50 mls @ 12.5 mls /hr 01/20/23 03:00 01/22/23 11:03 Sod 3.375 gm/ So dium Chloride IV 12.5 mls/hr Q8H NUBIA Administration Sodium Chloride 500 mls @ 0 mls/h r 01/20/23 04:00 01/20/23 05:12 Sodium Chloride 0.9% XX 3 mls/hr .Q0M NUBIA Administration As Directed Epinephrine HCl 2. 5 mg/ Sodium 252.5 mls @ 0 mls /hr 01/20/23 07:45 01/21/23 04:40 Chloride IV 0 mcg/min .Q0M NUBIA 0 mls/hr Titration Protocol Per Protocol Phenylephrine HCl 25 mg/ 252.5 mls @ 0 mls /hr 01/20/23 07:45 01/20/23 21:30 Sodium Chloride IV 0 mcg/min .Q0M NUBIA 0 mls/hr Titration Protocol Per Protocol Norepinephrine Bit artrate 8 mg 508 mls @ 0 mls/h r 01/20/23 14:00 01/22/23 09:52 / Dextrose IV 14 mcg/min .Q0M NUBIA 53.34 mls/hr Administration Protocol Per Protocol Vancomycin/PEG/NAD A/Lysine/Water 1,500 mg in 300 m ls @ 250 mls/hr 01/21/23 13:30 01/22/23 01:50 Vancocin IV Infused Q12H NUBIA Infusion Sodium Bicarbonate 50 meq/ 1,050 mls @ 75 ml s/hr 01/22/23 05:00 01/22/23 05:02 Sodium Chloride IV 75 mls/hr .Q14H NUBIA Administration Midazolam HCl 2 mg 01/20/23 02:13 01/21/23 06:37 Midazolam 1 Mg/M l Inj 2 Ml IVP 2 mg Q2H PRN Administration AGITATION Pantoprazole Sodiu m 40 mg 01/20/23 09:00 01/22/23 09:53 Pantoprazole 40 Mg Sdv IVP 40 mg DAILY NUBIA Administration Vitals/I&O/Wt Last Vital Signs Temp 99 F 01/22/23 10:00 Pulse 77 01/22/23 10:31 Resp 19 H 01/22/23 08:00 BP 132/85 01/22/23 10:00 Pulse Ox 96 01/22/23 10:31 O2 Del Method Room Air 01/21/23 19:50 FiO2 40 01/22/23 10:00 01/21/23 01/22/23 01/22/23 22:59 06:59 14:59 Intake Total 350 / 631.450 826.103 / 1457.553 298.09 / 298.09 Output Total 1750 / 4400 1000 / 5400 Balance -1400 / -3768.550 -173.897 / -3942.447 298.09 / 298.09 Physical Exam Narrative: Intubated sedated on mechanical ventilation HENMT: COMMON NORMALS: normocephalic and atraumatic HEAD & SCALP: normocephalic and atraumatic Resp: COMMON NORMALS: clear to auscultation bilaterally AUSCULTATION: clear to auscultation bilaterally Cardio: COMMON NORMALS: regular rate, regular rhythm, S1 normal heart sound present, S2 normal heart sound present, No gallops present (Cardio), No murmurs present (Cardio), No rub (Cardio) and Peripheral pulses 2+ throughout RATE: regular rate RHYTHM: regular rhythm HEART SOUNDS: S1 normal heart sound present and S2 normal heart sound present PERIPHERAL PULSES: Peripheral pulses 2+ throughout GI: COMMON NORMALS: Normal to inspection, nondistended, normoactive bowel sounds present, Soft to palpation, non-tender, No hepatosplenomegaly present and no masses AUSCULTATION: Yes normoactive bowel sounds PALPATION: Yes Soft to palpation and Yes No hepatosplenomegaly present RECTAL EXAM: Yes deferred Extremity: COMMON NORMALS: no clubbing, cyanosis or edema and no pedal edema Urinary Catheter Management: Perales: Cath Placed During This Visit: yes Reason for Continuing Indwelling Catheter: Accurate Measurement of Urinary Output in Critically Ill Patients Urinary Catheter Date of Insertion: 01/20/23 Urinary Catheter Time of Insertion: 00:30 Data 01/22/23 05:42 01/22/23 05:42 Micro: Microbiology 01/20/23 08:20 Gram Stain - Final Sputum - Endotracheal Tube Aspirate Sputum Culture - Final 01/20/23 16:45 Urine Culture - Final Urine Catheterized 01/20/23 08:40 Blood Culture - Preliminary Blood NEGATIVE TO DATE 01/20/23 08:30 Blood Culture - Preliminary Blood NEGATIVE TO DATE A&P Assessment and plan (1) Suicide attempt by multiple drug overdose: (2) Acute alteration in mental status: (3) Acute respiratory failure with hypoxia: (4) Acute hypotension: (5) Shock: (6) Acute kidney injury: (7) Hypertension: (8) Anxiety: (9) Depression: (10) Sinus bradycardia: Plan Assessment: #Multiple drug overdose #Suicide attempt #Shock secondary to all the above #Possible aspiration event #Anxiety, mild depression #History of hypertension #Polypharmacy #Acute kidney injury. Plan 37-year-old male with past medical history of drug abuse, anxiety depression, was brought in from home after, intentional suicide attempt, when he overdosed with multiple medications Which includes duloxetine, gabapentin, hydrochlorothiazide lisinopril propanolol, tizanidine, clonidine, when he came to the hospital he was, he intubated, he was severely hypotensive, was bolused with around 6 L IV fluid, was on multiple vasopressors (Levophed, epinephrine, phenylephrine, dopamine, vasopressin), he was also empirically kept on broad-spectrum antibiotics, blood cultures so far has been negative, CT head without contrast no acute intracranial pathology, x-ray chest: Is suggestive of bilateral basal atelectasis or bilateral basilar pneumonitis. CT chest abdomen and pelvis:Dense ingested material noted within the stomach lumen.?No foreign bodies or definitive formed pills within the stomach. U tox is positive for benzodiazepines. Patient initially received glucagon, on admission, but later on the night of admission, when supply of glucagon was sufficient enough, he was placed on glucagon drip, with monitoring of fingerstick glucose every hour, serial monitoring of CBC CMP electrolytes were done, patient was, successfully extubated, on 01/21, after he was alert awake following commands, transiently for short period of time all the vasopressor drips were stopped, But sometime later Levophed had to be restarted. Postextubation patient was doing fine, but unfortunately appears that when his came to meet him, he again consumed some unknown substance, after which he again became extremely drowsy, only awakening to very painful stimulus, he did receive 2 doses of Narcan with no response.Currently he is able to protect his airways, he is hemodynamically stable, for now we will monitor him. Poison control on board. CODE STATUS: Full code DVT prophylaxis on subcu heparin Attestations Medical Necessity Statement*: Needs to be in hospital for management of multiple drug overdose. Procedures Arterial Line Size (Gauge): 18 Coding Level of Care Code Critical Care >/= 30 minutes Diagnoses Suicide attempt by multiple drug overdose T50.912A Acute alteration in mental status R41.82 Acute respiratory failure with hypoxia J96.01 Acute hypotension I95.9 Shock R57.9 Acute kidney injury N17.9 Hypertension I10 Anxiety F41.9 Depression F32.A Sinus bradycardia R00.1
[2023-01-22 12:34] LABS: Glucose Point of Care 105 mg/dL (70-110)
[2023-01-22 13:29] LABS: Anion Gap 18.7 (5-19); Blood Urea Nitrogen 23 mg/dL (6-20); Calcium 8.9 mg/dL (8.5-10.5); Carbon Dioxide 18 mmol/L (22-29); Chloride 97 mmol/L (98-107); Glomerular Filtration Rate 67.4 mL/min (90-130); Glucose 179 mg/dL (65-115); Osmolality Calculated 278 mOsm/kg (285-295); Potassium 3.7 mmol/L (3.5-5.1); Sodium 130 mmol/L (136-145)
--- NOTE | 2023-01-22 17:09 | PC.NURSE ---
mom in for visit today nurse at bedside entire time of visit pt opening eyes, and squeese hands and moving extremities .. monitor uo
[2023-01-22] MEDS: hydrocortisone 100 mg/2 mL SDV 50 MG IVP (18:20)
[2023-01-23] VITALS (59 sets, daily range): BP systolic 88–134; BP diastolic 51–87; PULSE 54–82; RESP 14; TEMP 36.4–37.3; O2SAT 91–100
[2023-01-23 00:45] LABS: Glucose Point of Care 138 mg/dL (70-110)
[2023-01-23 01:43] LABS: Basophils % 0.1 %; Eosinophils % 0.3 %; Hematocrit 35.6 % (42.0-52.0); Hemoglobin 12.1 g/dL (11.7-16.6); Lymphocytes # 1.6 10^3/uL (0.8-4.8); Lymphocytes % 13.6 %; Mean Corpuscular Hemoglobin 32.1 pg (28.0-34.0); Mean Corpuscular Volume 94.4 fl (80-94); Mean Platelet Volume 10.3 fL (7.4-10.4); Monocytes # 1.9 10^3/uL (0.2-0.9); Monocytes % 16.3 %; Neutrophils # 8.22 10^3/uL (1.8-7.7); Neutrophils % 69.3 %; Nucleated Red Blood Cells % 0 %; Platelet Count 240 10^3/cmm (130-400); Red Blood Count 3.77 10^6/uL (4.1-5.3); Red Cell Distribution Width 13.2 % (12.1-15.1); White Blood Count 11.9 10^3/uL (4.0-10.0)
[2023-01-23] MEDS: chlorhexidine gluconate 4% Btl 118 mL 1 APPLIC TOPICAL (01:47)
[2023-01-23] MEDS: hydrocortisone 100 mg/2 mL SDV 50 MG IVP ×4 (01:48→22:47)
[2023-01-23] MEDS: vancomycin 1,500 MG/300 ML PIGGYBACK 250 MG IV (01:48)
[2023-01-23] MEDS: heparin 5,000 unit/mL INJ 1 mL 5000 UNIT SUBCUT (01:48)
[2023-01-23 02:00] LABS: Alanine Aminotransferase 30 U/L (0-41); Albumin Level 3.2 g/dL (3.5-5.2); Alkaline Phosphatase 40 U/L (40-130); Anion Gap 17.7 (5-19); Aspartate Amino Transferase 75 U/L (0-40); Blood Urea Nitrogen 24 mg/dL (6-20); Calcium 8.4 mg/dL (8.5-10.5); Carbon Dioxide 20 mmol/L (22-29); Chloride 98 mmol/L (98-107); Globulin 2.4 g/dL (1.3-4.6); Glomerular Filtration Rate 67.4 mL/min (90-130); Glucose 133 mg/dL (65-115); Magnesium 1.9 mg/dL (1.7-2.3); Osmolality Calculated 280 mOsm/kg (285-295); Phosphorus 3.3 mg/dL (2.5-4.5); Potassium 3.7 mmol/L (3.5-5.1); Sodium 132 mmol/L (136-145); Total Bilirubin 0.2 mg/dL (0.15-1.2); Total Protein 5.6 g/dL (6.6-8.7)
[2023-01-23 02:07] LABS: Vancomycin Trough 14.2 ug/mL (10-15)
[2023-01-23] MEDS: piperacillin-tazobactam 3.375 GM in sodium chloride 0.9% (plus) 50 ML IV ×3 (03:27→18:34)
[2023-01-23 06:09] LABS: Glucose Point of Care 122 mg/dL (70-110)
--- NOTE | 2023-01-23 09:07 | XR_ITS ---
WS: [id number] Portable AP semiupright chest, 01/23/2023 Clinical Data: Change in oxygen sats. Comparison: Portable chest, 01/22/2023 Findings: The bibasilar lung opacities have cleared. The multiple tubes remain in good position. Mary Jane tor leads are on the chest wall. Resuscitation paddles are overlying the left lower chest and left up per quadrant. There is a recording device overlying the heart. The heart remains the same. No nodules , masses or effusions are seen. XR/XR chest 1V portable [id number] Impression: 1. Clearing of bibasilar lung opacities. 2. No change in multiple tubes.
[2023-01-23] MEDS: sodium bicarbonate 50 MEQ in sodium chloride 0.45% 1,000 ML 75 MEQ IV (09:08)
[2023-01-23] MEDS: pantoprazole 40 mg SDV IVP (09:08)
--- NOTE | 2023-01-23 09:36 | PM.PN ---
Subjective Subjective: This morning patient had an episode of desaturation while being repositioned. O2 requirements on the vent needed to be bumped up to 100% FiO2. He had a slight cough at the time. Concern for possible aspiration. Chest x-ray shows overall clearing of bilateral opacities. ET tube appears to be in the correct position. Continues to be on fentanyl 25 mics. Currently sedated on minimal dose. Levophed requirements needed to be increased from 2-6 mics. Medications: Reviewed: Yes Medication Review Details: Generic Name Dose Route Start Last Admin Trade Name Freq PRN Reason Stop Dose Admin Heparin Sodium (Po rcine) 5,000 unit 01/20/23 02:45 01/22/23 03:35 Heparin 5,000 Un it/Ml Inj 1 Ml SUBCUT 5,000 unit Q12H NUBIA Administration Hydrocortisone Sod ium Succinate 100 mg 01/20/23 17:15 01/22/23 11:02 Hydrocortisone 1 00 Mg/2 Ml Sdv IVP 100 mg Q6H NUBIA Administration Fentanyl 1,000 mcg / Sodium 100 mls @ 0 mls/h r 01/19/23 23:45 01/22/23 02:10 Chloride IV 25 mcg/hr .Q0M NUBIA 2.5 mls/hr Administration Protocol Per Protocol Vasopressin 100 un it/ Sodium 100 mls @ 0 mls/h r 01/20/23 02:30 01/22/23 05:03 Chloride IV 0.04 unit/min .Q0M NUBIA 2.4 mls/hr Administration Protocol Per Protocol Dopamine HCl/Dextr ose 400 mg in 250 mls @ 14.458 mls/hr 01/20/23 02:45 01/22/23 09:55 Intropin Drip IV 10 mcg/kg/min CONT NUBIA 28.92 mls/hr Administration Protocol 5 MCG/KG/MIN Piperacillin Sod/T azobactam 50 mls @ 12.5 mls /hr 01/20/23 03:00 01/22/23 11:03 Sod 3.375 gm/ So dium Chloride IV 12.5 mls/hr Q8H NUBIA Administration Sodium Chloride 500 mls @ 0 mls/h r 01/20/23 04:00 01/20/23 05:12 Sodium Chloride 0.9% XX 3 mls/hr .Q0M NUBIA Administration As Directed Epinephrine HCl 2. 5 mg/ Sodium 252.5 mls @ 0 mls /hr 01/20/23 07:45 01/21/23 04:40 Chloride IV 0 mcg/min .Q0M NUBIA 0 mls/hr Titration Protocol Per Protocol Phenylephrine HCl 25 mg/ 252.5 mls @ 0 mls /hr 01/20/23 07:45 01/20/23 21:30 Sodium Chloride IV 0 mcg/min .Q0M NUBIA 0 mls/hr Titration Protocol Per Protocol Norepinephrine Bit artrate 8 mg 508 mls @ 0 mls/h r 01/20/23 14:00 01/22/23 09:52 / Dextrose IV 14 mcg/min .Q0M NUBIA 53.34 mls/hr Administration Protocol Per Protocol Vancomycin/PEG/NAD A/Lysine/Water 1,500 mg in 300 m ls @ 250 mls/hr 01/21/23 13:30 01/22/23 01:50 Vancocin IV Infused Q12H NUBIA Infusion Sodium Bicarbonate 50 meq/ 1,050 mls @ 75 ml s/hr 01/22/23 05:00 01/22/23 05:02 Sodium Chloride IV 75 mls/hr .Q14H NUBIA Administration Midazolam HCl 2 mg 01/20/23 02:13 01/21/23 06:37 Midazolam 1 Mg/M l Inj 2 Ml IVP 2 mg Q2H PRN Administration AGITATION Pantoprazole Sodiu m 40 mg 01/20/23 09:00 01/22/23 09:53 Pantoprazole 40 Mg Sdv IVP 40 mg DAILY NUBIA Administration Vitals/I&O/Wt Last Vital Signs Temp 99 F 01/22/23 16:00 Pulse 66 01/23/23 06:00 Resp 14 01/23/23 08:12 BP 100/64 01/23/23 06:00 Pulse Ox 96 01/23/23 08:12 O2 Del Method Mechanical Ventilation 01/23/23 08:11 FiO2 30 01/23/23 08:12 01/22/23 01/23/23 01/23/23 22:59 06:59 14:59 Intake Total 0140.759 / 2373.611 349.08 / 2722.691 1225.042 / 1225.042 Output Total 2125 / 4125 600 / 4725 Balance -304.241 / -1751.389 -250.92 / -2002.309 1225.042 / 1225.042 Physical Exam Narrative: General: Intubated, intubated, sedated HEENT: PERRLA, pupils bilaterally equal and reactive, pallors not present Chest: Coarse bilateral breath sounds anteriorly to auscultation CVS: S1-S2 regular, no murmurs, no tachycardia, no gallops, no rubs Abdomen: Soft, nontender, no organomegaly, bowel sounds present Neuro: Currently unable to assess, intubated and sedated Lines: ET tube, NG tube, Perales, right IJ Urinary Catheter Management: Perales: Cath Placed During This Visit: yes Reason for Continuing Indwelling Catheter: Accurate Measurement of Urinary Output in Critically Ill Patients Urinary Catheter Date of Insertion: 01/20/23 Urinary Catheter Time of Insertion: 00:30 Data 01/23/23 00:47 01/23/23 00:47 Micro: Microbiology 01/20/23 08:20 Gram Stain - Final Sputum - Endotracheal Tube Aspirate Sputum Culture - Final 01/20/23 16:45 Urine Culture - Final Urine Catheterized A&P Assessment and plan (1) Suicide attempt by multiple drug overdose: (2) Acute alteration in mental status: (3) Acute respiratory failure with hypoxia: (4) Acute hypotension: (5) Shock: (6) Acute kidney injury: (7) Hypertension: (8) Anxiety: (9) Depression: (10) Sinus bradycardia: Plan 37-year-old male with past medical history of drug abuse, anxiety depression, admitted to the hospital on January 19, 2023 after presenting with intentional suicide attempt, when he overdosed with multiple medications including duloxetine, gabapentin, hydrochlorothiazide lisinopril propanolol, tizanidine, clonidine. He was intubated upon admission due to poor GCS and hypoxic respiratory failure Patient was extubated however needed to be reintubated on January 22, 2023 due to poor GCS. On reintubation laryngeal edema was encountered. Initially on presentation he was on multiple vasopressors including phenylephrine, vasopressin, Levophed, epinephrine and dopamine. Currently he remains on Levophed at 6 mics. Currently on minimal sedation fentanyl of 25, however does not wake up to calling name or to painful stimulus at this time. Overnight on January 22, 2023, he became bradycardic with heart rate down to 32. He received atropine and bicarb drip was started. He was hypothermic at that time. CT head performed on January 19 and then again on January 22 with acute change in events showed no acute intracranial pathology. Likely that his somnolence and low GCS is related to polypharmacy. CT of the chest abdomen and pelvis shows dependent bibasilar consolidation for which she is currently on antibiotic treatment with piperacillin/tazobactam. Note also made of possible colitis, unable to correlate clinically. Patient is currently not having a bowel movement. Echocardiogram performed on January 20 showed LV systolic function with a EF of 45 to 50%, mildly dilated aortic root. Troponin series unremarkable Blood culture from January 20, 2023 remains negative to date Urine culture negative to date LIBAN present on admission with creatinine of 1.7, now improved to 1.2, urine output of over 6 L Leukocytosis resolving Tmax 99 Fahrenheit over 24 hours reduce hydrocortisone to 50mh iv q12h Poison control following. Check ABG given desaturation episode this morning CODE STATUS: Full code DVT prophylaxis : lovenox PUD ppx: Protonix Attestations Medical Necessity Statement*: continued ICU care for intubated patient, needs respiratory and circulatory support Procedures Arterial Line Size (Gauge): 18 Coding Level of Care Code Critical Care >/= 30 minutes Diagnoses Suicide attempt by multiple drug overdose T50.912A Acute alteration in mental status R41.82 Acute respiratory failure with hypoxia J96.01 Acute hypotension I95.9 Shock R57.9 Acute kidney injury N17.9 Hypertension I10 Anxiety F41.9 Depression F32.A Sinus bradycardia R00.1
[2023-01-23] MEDS: sodium chloride 0.9% 500 ML XX ×2 (09:53→10:51)
[2023-01-23 10:03] LABS: ABG PCO2 36.6 mmHg (35-45); ABG PH Result 7.42 (7.35-7.45); Arterial Blood Gas Hematocrit 40.4 % (42-52); Base Excess ABG -0.6 mmol/L (-2.0-2.0); Blood Gas Operator Identificat GD; Blood Gas Sample Site Not specified; Blood Gas Sample Type Arterial; Blood Gas Tidal Volume 0.52; Carboxyhemoglobin 0.4 %THgb (0.4-20.1); HCO3 ABG 23.6 mmol/L (22-26); Ionized Calcium Level - ABG 1.2 mmol/L (1.1-1.4); Methemoglobin 1.1 % (0.4-1.5); Oxygen Device VENT; Oxygen Saturation ABG 90.3; PO2 ABG 60.4 mmHg (80.0-100.0); Potassium Level - ABG 3.1 mmol/L (3.5-5.0); Total Hemoglobin 13.2 g/dL (14-18)
--- NOTE | 2023-01-23 10:41 | PC.NURSE ---
Poison control called for update. No current recommendations.
[2023-01-23] MEDS: enoxaparin 40 mg/0.4 mL Syringe SUBCUT (10:50)
[2023-01-23] MEDS: sodium chloride 0.9% 1,000 ML 75 ML IV ×2 (10:52→23:02)
--- NOTE | 2023-01-23 11:12 | PC.NURSE ---
Wound to Left foot. Pressure injury to left foot noticed upon shift change. Stg 1 measures [id number]. Area blanches. Dr. Castro notified. No wound care orders at this time.
[2023-01-23 14:13] LABS: Glucose Point of Care 140 mg/dL (70-110)
--- NOTE | 2023-01-23 14:25 | PC.NURSE ---
called via video chat to see patient. Patient's sister also called and given update.
[2023-01-23 17:52] LABS: Glucose Point of Care 120 mg/dL (70-110)
[2023-01-23] MEDS: norepinephrine 8 MG in dextrose 5 % 500 ML 15.24 MG IV (18:35)
[2023-01-23] MEDS: lidocaine 1% 5 ML in potassium chloride premix 100 ML 26.25 ML IV (19:35)
[2023-01-24] VITALS (60 sets, daily range): BP systolic 110–149; BP diastolic 71–106; PULSE 41–95; RESP 14; TEMP 36.2–37.1; O2SAT 92–100
[2023-01-24] MEDS: chlorhexidine gluconate 4% Btl 118 mL 1 APPLIC TOPICAL (00:53)
[2023-01-24] MEDS: piperacillin-tazobactam 3.375 GM in sodium chloride 0.9% (plus) 50 ML IV ×3 (02:59→18:56)
[2023-01-24] MEDS: dexmedetomidine 400 MCG in sodium chloride 0.9% (100 ml) 100 ML IV ×2 (03:34→13:54)
[2023-01-24 04:03] LABS: Basophils % 0.1 %; Hematocrit 36.9 % (42.0-52.0); Hemoglobin 12.7 g/dL (11.7-16.6); Lymphocytes # 1.4 10^3/uL (0.8-4.8); Lymphocytes % 8.4 %; Mean Corpuscular HGB Conc 34.4 g/dL (30.0-36.0); Mean Corpuscular Hemoglobin 32.8 pg (28.0-34.0); Mean Corpuscular Volume 95.3 fl (80-94); Mean Platelet Volume 10.1 fL (7.4-10.4); Monocytes # 1.8 10^3/uL (0.2-0.9); Monocytes % 11.2 %; Neutrophils # 12.81 10^3/uL (1.8-7.7); Nucleated Red Blood Cells % 0 %; Platelet Count 254 10^3/cmm (130-400); Red Blood Count 3.87 10^6/uL (4.1-5.3); Red Cell Distribution Width 13.6 % (12.1-15.1)
[2023-01-24 04:28] LABS: Alanine Aminotransferase 26 U/L (0-41); Albumin Level 3.4 g/dL (3.5-5.2); Alkaline Phosphatase 41 U/L (40-130); Anion Gap 12.8 (5-19); Aspartate Amino Transferase 54 U/L (0-40); Blood Urea Nitrogen 20 mg/dL (6-20); Carbon Dioxide 26 mmol/L (22-29); Chloride 111 mmol/L (98-107); Globulin 2.6 g/dL (1.3-4.6); Glomerular Filtration Rate 56.4 mL/min (90-130); Glucose 99 mg/dL (65-115); Magnesium 1.9 mg/dL (1.7-2.3); Osmolality Calculated 307 mOsm/kg (285-295); Sodium 147 mmol/L (136-145); Total Bilirubin 0.2 mg/dL (0.15-1.2)
[2023-01-24 04:34] LABS: Potassium 2.8 mmol/L (3.5-5.1)
--- NOTE | 2023-01-24 04:48 | PC.NURSE ---
Critical lab result-Potassium 2.[address] Cortez, orders placed for replacement potassium.
[2023-01-24] MEDS: lidocaine 1% 5 ML in potassium chloride premix 100 ML 26.25 ML IV ×2 (04:57→17:36)
[2023-01-24 06:17] LABS: Glucose Point of Care 107 mg/dL (70-110)
--- NOTE | 2023-01-24 08:42 | PC.NURSE ---
Ring Patient had silver ring on left 2nd finger that was causing an indention in finger. Ring removed and placed in a biohazard bag. This was placed into patient's paper chart.
[2023-01-24] MEDS: pantoprazole 40 mg SDV IVP (09:37)
[2023-01-24] MEDS: enoxaparin 40 mg/0.4 mL Syringe SUBCUT (09:37)
--- NOTE | 2023-01-24 10:23 | PC.NURSE ---
Poison control called unit to check on patient. Update given. Continues to recommend keeping patient intubated 3-4 more days.
--- NOTE | 2023-01-24 10:24 | PC.NURSE ---
called unit and given update on patient.
--- NOTE | 2023-01-24 11:01 | PC.NURSE ---
Precedex off due to bradycardia.
[2023-01-24] MEDS: hydrocortisone 100 mg/2 mL SDV 50 MG IVP ×2 (11:07→15:37)
[2023-01-24 11:16] LABS: Glucose Point of Care 96 mg/dL (70-110)
[2023-01-24] MEDS: sodium chloride 0.9% 1,000 ML 75 ML IV (12:49)
[2023-01-24] MEDS: ipratropium-albuterol 3 mL Neb INHALATION ×2 (14:50→20:01)
[2023-01-24] MEDS: D5-NS 0.45% + KCL 20 mEq 20 MEQ/1,000 ML BAG 75 MEQ IV (15:37)
--- NOTE | 2023-01-24 16:36 | PC.NURSE ---
Muscle spasms to bilateral lower extremities. Range of motion done. Stat mag and CMP order to check mag and K+ levels.
[2023-01-24 17:04] LABS: Alanine Aminotransferase 24 U/L (0-41); Albumin Level 3.4 g/dL (3.5-5.2); Alkaline Phosphatase 34 U/L (40-130); Anion Gap 12.9 (5-19); Aspartate Amino Transferase 44 U/L (0-40); Blood Urea Nitrogen 18 mg/dL (6-20); Calcium 8.6 mg/dL (8.5-10.5); Carbon Dioxide 27 mmol/L (22-29); Chloride 109 mmol/L (98-107); Globulin 2.5 g/dL (1.3-4.6); Glomerular Filtration Rate 74.5 mL/min (90-130); Glucose 103 mg/dL (65-115); Magnesium 1.9 mg/dL (1.7-2.3); Osmolality Calculated 304 mOsm/kg (285-295); Sodium 146 mmol/L (136-145); Total Bilirubin 0.4 mg/dL (0.15-1.2); Total Protein 5.9 g/dL (6.6-8.7)
--- NOTE | 2023-01-24 17:06 | P.PN_ITS ---
Subjective Subjective: Patient's fentanyl requirement increased today to 125 andres. May additionally need to add Versed given that patient is intermittently waking up on the fentanyl. His mental status appears improved compared to yesterday. On suctioning he is attempting to cough. Does have a gag reflex. Poison control had called for the patient and recommended to keep him intubated due to anticipated slow release of medications. his developing hypernatremia, sodium up to 147. Bilateral wheezing to auscultation today. Increased airway pressure on vent. Medications: Reviewed: Yes Vitals/I&O/Wt Last Vital Signs Temp 97.9 F 01/24/23 16:30 Pulse 89 01/24/23 16:30 Resp 14 01/24/23 16:30 BP 129/87 01/24/23 16:30 Pulse Ox 97 01/24/23 16:30 O2 Del Method Mechanical Ventilation 01/24/23 16:30 FiO2 28 01/24/23 16:30 01/24/23 01/24/23 01/24/23 06:59 14:59 22:59 Intake Total 1095.300 / 2865.204 1295.314 / 1295.314 56.656 / 1351.970 Output Total 500 / 6150 750 / 750 Balance 595.300 / -3284.796 1295.314 / 1295.314 -693.344 / 601.970 Physical Exam 2 Narrative: General: Intubated, sedated HEENT: PERRLA, pupils bilaterally equal and reactive, pallors not present Chest: Bilateral wheezing to auscultation CVS: S1-S2 regular, no murmurs, no tachycardia, no gallops, no rubs Abdomen: Soft, nontender, no organomegaly, bowel sounds present Neuro: Unable to assess as currently intubated sedated Extremities developing of fluid-filled blister over the plantar aspect of the left foot. No surrounding signs of infection. Urinary Catheter Management: Perales: Cath Placed During This Visit: yes Reason for Continuing Indwelling Catheter: Accurate Measurement of Urinary Output in Critically Ill Patients Urinary Catheter Date of Insertion: 01/20/23 Urinary Catheter Time of Insertion: 00:30 Data 01/25/23 03:23 01/25/23 03:23 A&P Assessment and plan (1) Suicide attempt by multiple drug overdose: (2) Acute alteration in mental status: (3) Acute respiratory failure with hypoxia: (4) Acute hypotension: (5) Shock: (6) Acute kidney injury: (7) Hypertension: (8) Anxiety: (9) Depression: (10) Sinus bradycardia: (11) Hypokalemia: (12) Hypernatremia: Plan 37-year-old male with past medical history of drug abuse, anxiety depression, admitted to the hospital on January 19, 2023 after presenting with suicide attempt, when he overdosed with multiple medications including duloxetine, gabapentin, hydrochlorothiazide lisinopril propanolol, tizanidine, clonidine. He was intubated upon admission due to poor GCS and hypoxic respiratory failure Patient was extubated however needed to be reintubated on January 22, 2023 due to poor GCS. On reintubation laryngeal edema was encountered. Poison control recommends. Keeping patient intubated today due to concern for d elayed release of medications and poor GCS. Patient's fentanyl requirement has increased today and may need to be additionally started on Versed given that he is starting to get agitated. This does show an improvement in his mental status compared to yesterday. He has a gag reflex today. Since patient is to remain intubated and has been n.p.o. since the , will start TPN for nutrition. Additionally developing hypernatremia, clinically showing signs of dehydration. I had started him on normal saline at 125 cc yesterday, will change fluids to D5 half normal saline CT of the chest abdomen and pelvis shows dependent bibasilar consolidation for which she is currently on antibiotic treatment with piperacillin/tazobactam. Note also made of possible colitis, however no clinical correlate for the same. He is yet to have a bowel movement. Echocardiogram performed on January 20 showed LV systolic function with a EF of 45 to 50%, mildly dilated aortic root. Troponin series unremarkable Blood culture from January 20, 2023 remains negative to date Urine culture negative to date LIBAN present on admission with creatinine of 1.7, now improved to 1.0, likely secondary to SAMINA inhibitor overdose Leukocytosis resolving Tmax 99 Fahrenheit over 24 hours Reduce hydrocortisone to 50 mg daily Patient does have significant wheezing encountered on exam today, suspect that this is related to beta-ceferino overdose. His wheezing did resolve after being given nebulization with albuterol. CODE STATUS: Full code DVT prophylaxis : lovenox PUD ppx: Protonix Attestations Medical Necessity Statement*: Continued admission as intubated mechanically ventilated, will attempt weaning tomorrow, if mental status appears to be improving, hypernatremia, start TPN Procedures Arterial Line Size (Gauge): 18 Coding Level of Care Code Critical Care >/= 30 minutes Diagnoses Suicide attempt by multiple drug overdose T50.912A Acute alteration in mental status R41.82 Acute respiratory failure with hypoxia J96.01 Acute hypotension I95.9 Shock R57.9 Acute kidney injury N17.9 Hypertension I10 Anxiety F41.9 Depression F32.A Sinus bradycardia R00.1 Hypokalemia E87.6 Hypernatremia E87.0
[2023-01-24 17:07] LABS: Potassium 2.9 mmol/L (3.5-5.1)
[2023-01-24 17:23] LABS: Glucose Point of Care 107 mg/dL (70-110)
[2023-01-24] MEDS: AA-Dex 5%-20% w/Lytes 1,000 ML 12 ML IV (19:59)
[2023-01-24] MEDS: budesonide 0.5 mg/2 mL Neb INHALATION (20:01)
[2023-01-24 20:49] LABS: Amphetamines Level NEGATIVE ng/mL (<500); Barbiturates NEGATIVE ng/mL (<300); Benzodiazepines POSITIVE ng/mL (<100); Cocaine Metabolite NEGATIVE ng/mL (<150); Marijuana Metabolite NEGATIVE ng/mL (<20); Methadone Metabolite NEGATIVE ng/mL (<100); Opiates NEGATIVE ng/mL (<100); Oxidant NEGATIVE mcg/mL (<200); Phencyclidine NEGATIVE ng/mL (<25); Urine pH 6.1 (4.5-9.0)
[2023-01-25] VITALS (56 sets, daily range): BP systolic 119–161; BP diastolic 77–104; PULSE 43–101; RESP 14–38; TEMP 36.7–37.5; O2SAT 87–98
[2023-01-25] MEDS: chlorhexidine gluconate 4% Btl 118 mL 1 APPLIC TOPICAL (01:36)
[2023-01-25] MEDS: piperacillin-tazobactam 3.375 GM in sodium chloride 0.9% (plus) 50 ML IV ×3 (03:15→18:20)
[2023-01-25 03:58] LABS: Basophils % 0.2 %; Eosinophils # 0.1 10^3/uL (0.0-0.8); Eosinophils % 0.7 %; Hematocrit 34.6 % (42.0-52.0); Hemoglobin 11.7 g/dL (11.7-16.6); Lymphocytes # 2.9 10^3/uL (0.8-4.8); Lymphocytes % 28.2 %; Mean Corpuscular HGB Conc 33.8 g/dL (30.0-36.0); Mean Corpuscular Hemoglobin 32.3 pg (28.0-34.0); Mean Corpuscular Volume 95.6 fl (80-94); Monocytes # 1.3 10^3/uL (0.2-0.9); Monocytes % 12.6 %; Neutrophils # 5.98 10^3/uL (1.8-7.7); Nucleated Red Blood Cells % 0 %; Platelet Count 232 10^3/cmm (130-400); Red Blood Count 3.62 10^6/uL (4.1-5.3); Red Cell Distribution Width 13.7 % (12.1-15.1); White Blood Count 10.3 10^3/uL (4.0-10.0)
[2023-01-25] MEDS: D5-NS 0.45% + KCL 20 mEq 20 MEQ/1,000 ML BAG 75 MEQ IV (03:58)
[2023-01-25 04:27] LABS: Alanine Aminotransferase 23 U/L (0-41); Albumin Level 3.1 g/dL (3.5-5.2); Alkaline Phosphatase 30 U/L (40-130); Anion Gap 12.9 (5-19); Aspartate Amino Transferase 40 U/L (0-40); Blood Urea Nitrogen 17 mg/dL (6-20); Calcium 8.7 mg/dL (8.5-10.5); Carbon Dioxide 26 mmol/L (22-29); Chloride 111 mmol/L (98-107); Globulin 2.5 g/dL (1.3-4.6); Glomerular Filtration Rate 83.2 mL/min (90-130); Glucose 99 mg/dL (65-115); Magnesium 1.9 mg/dL (1.7-2.3); Osmolality Calculated 306 mOsm/kg (285-295); Sodium 147 mmol/L (136-145); Total Bilirubin 0.3 mg/dL (0.15-1.2); Total Protein 5.6 g/dL (6.6-8.7)
[2023-01-25 04:30] LABS: Potassium 2.9 mmol/L (3.5-5.1)
[2023-01-25] MEDS: lidocaine 1% 5 ML in potassium chloride premix 100 ML 26.25 ML IV (05:07)
[2023-01-25] MEDS: ipratropium-albuterol 3 mL Neb INHALATION (07:44)
[2023-01-25] MEDS: budesonide 0.5 mg/2 mL Neb INHALATION (07:44)
[2023-01-25] MEDS: pantoprazole 40 mg SDV IVP (08:31)
[2023-01-25] MEDS: enoxaparin 40 mg/0.4 mL Syringe SUBCUT (09:09)
--- NOTE | 2023-01-25 09:40 | PC.NURSE ---
Patient extubated and restraints removed at 0930 by RT.
[2023-01-25 11:10] LABS: Glucose Point of Care 90 mg/dL (70-110)
--- NOTE | 2023-01-25 11:11 | PC.NUTR ---
If TPN continued, recommend TPN goal rate 83 mls/hr with 25 grams/125 mls fat emulsion and standard electrolytes and MV 10 mls/day. Details in RD assessment.
--- NOTE | 2023-01-25 11:52 | PC.NURSE ---
After extubation at 0930, patient has been very rude and cussing at staff. This nurse stated we were trying to help him and be nice to him, he stated no your just trying to be a bitch . 1:1 sitter bedside due to 96 hour hold. Patient called sitters a cocksucker multiple times. Security was here and bedside when patient was read his rights. Patient continues to say he is going to leave out of here butt naked. Explained to patient multiple times we were just following the policy on the 96 hour hold, patient not very complaint. Sitter bedside.
--- NOTE | 2023-01-25 12:24 | PC.NURSE ---
Patient continues to be non complaint with staff and trying to get out of bed, which is unsafe at this time. Patient disconnected arterial line and resulted in blood being spilled in room. Nursing staff removed art line and held manual pressure. Security is bedside at this time to due patients increasing agitation and pulling at lines and not listening to staff medically.
[2023-01-25] MEDS: haloperidol inj 5 mg/mL INJ 1 mL 1 MG IVP ×2 (12:37→22:37)
--- NOTE | 2023-01-25 12:39 | PC.NURSE ---
Patient still very reluctant about cooperating with staff. Continues to trying to unsafely get out of bed. Security still bedside to assist staff if needed. Patient pulling telemetry leads off and pulling at IVs. PRN haldol given per mar for medical necessity.
--- NOTE | 2023-01-25 14:56 | ECG_ITS ---
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 Measurements Intervals [place] Rate: 58 P: 66 [place]: 171 QRS: 52 QRSD: 96 T: 47 QT: 398 QTc: 393 Interpretive Statements SINUS BRADYCARDIA NONSPECIFIC T-WAVE ABNORMALITY Compared to ECG 01/21/2023 00:13:41 T-wave abnormality now present Electronically Signed On 01-27-2023 1:29:11 CDT by Ronda Vaz M.D. [id number]
--- NOTE | 2023-01-25 15:14 | PC.NURSE ---
Patients arrived for visitation at 1500. As soon as entered the room patient became agitated and yelling at for taking his klonopin, that she was a thief. Screaming and yelling and began to try to rip out IVs, this nurse asked the patients to step out of the room and the patient also asked for her to leave. Patient is currently resting in room calming down
[2023-01-25] MEDS: ziprasidone 20 mg/mL SDV 10 MG IM (15:59)
--- NOTE | 2023-01-25 16:28 | PM.PN ---
Subjective Subjective: Patient was successfully able to be extubated this morning. postextubation he has remained on Precedex. His heart rate today is doing much better. Baseline he is ranging between 70 to 90 bpm. He did have transient bradycardia after going up to 1.2 on the Precedex. He has needed intermittent Haldol. A 96-hour hold was initiated after extubation given patient's suicidal attempt. Medications: Reviewed: Yes Vitals/I&O/Wt Last Vital Signs Temp 98.1 F 01/25/23 00:00 Pulse 74 01/25/23 14:00 Resp 37 H 01/25/23 14:00 BP 122/77 01/25/23 14:00 Pulse Ox 95 01/25/23 12:00 O2 Del Method Mechanical Ventilation 01/25/23 07:40 FiO2 28 01/25/23 09:13 01/25/23 01/25/23 01/25/23 06:59 14:59 22:59 Intake Total 1107.867 / 2696.145 1423.136 / 1423.136 Output Total 350 / 1400 Balance 757.867 / 7046.855 0322.136 / 1423.136 Physical Exam Narrative: General: Extubated earlier today. Maintaining his airway. No acute distress HEENT: PERRLA, pupils bilaterally equal and reactive, pallors not present Chest: Clear breath sounds to auscultation bilaterally CVS: S1-S2 regular, no murmurs, no tachycardia, no gallops, no rubs Abdomen: Soft, nontender, no organomegaly, bowel sounds present Neuro: Moving all extremities, alert oriented Lines: Perales, right IJ Urinary Catheter Management: Perales: Cath Placed During This Visit: yes Reason for Continuing Indwelling Catheter: Accurate Measurement of Urinary Output in Critically Ill Patients Urinary Catheter Date of Insertion: 01/20/23 Urinary Catheter Time of Insertion: 00:30 Data 01/25/23 03:23 01/25/23 03:23 Micro: Microbiology 01/20/23 08:40 Blood Culture - Final Blood NO GROWTH AFTER 5 DAYS 01/20/23 08:30 Blood Culture - Final Blood NO GROWTH AFTER 5 DAYS A&P Assessment and plan (1) Suicide attempt by multiple drug overdose: (2) Acute alteration in mental status: (3) Acute respiratory failure with hypoxia: (4) Acute hypotension: (5) Shock: (6) Acute kidney injury: (7) Hypertension: (8) Anxiety: (9) Depression: (10) Sinus bradycardia: Plan 37-year-old male with past medical history of drug abuse, anxiety depression, admitted to the hospital on January 19, 2023 after presenting with suicide attempt, when he overdosed with multiple medications including duloxetine, gabapentin, hydrochlorothiazide lisinopril propanolol, tizanidine, clonidine. He was intubated upon admission due to poor GCS and hypoxic respiratory failure Patient was extubated however needed to be reintubated on January 22, 2023 due to poor GCS. On reintubation laryngeal edema was encountered. He has been able to be successfully extubated this morning. Currently maintaining his airways. He did need to be started on Precedex infusion due to agitation postextubation. Currently calm. With increase in Precedex to 1.2 patient became bradycardic therefore it has been tapered down. Additional Haldol as needed has been added to his medication regimen. 96-hour hold initiated after extubation. Affidavit filled. Psychiatry team consulted. CT of the chest abdomen and pelvis shows dependent bibasilar consolidation for which she is currently on antibiotic treatment with piperacillin/tazobactam. Note also made of possible colitis, however no clinical correlate for the same. He is yet to have a bowel movement. Echocardiogram performed on January 20 showed LV systolic function with a EF of 45 to 50%, mildly dilated aortic root. Troponin series unremarkable Blood culture from January 20, 2023 remains negative to date Urine culture negative to date LIBAN present on admission with creatinine of 1.7, now improved to 1.0, likely secondary to SAMINA inhibitor overdose Leukocytosis resolving Tmax 99 Fahrenheit over 24 hours Discontinue hydrocortisone today as shock is now resolved. CODE STATUS: Full code DVT prophylaxis : lovenox PUD ppx: Protonix Attestations Medical Necessity Statement*: Extubated successfully today. Needs continued monitoring in the ICU. Running a Precedex infusion at this present time. Needs psychiatry consult. On a 96-hour hold. Procedures Arterial Line Size (Gauge): 18 Coding Level of Care Code Critical Care >/= 30 minutes Diagnoses Suicide attempt by multiple drug overdose T50.912A Acute alteration in mental status R41.82 Acute respiratory failure with hypoxia J96.01 Acute hypotension I95.9 Shock R57.9 Acute kidney injury N17.9 Hypertension I10 Anxiety F41.9 Depression F32.A Sinus bradycardia R00.1
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
[2023-01-25] MEDS: dexmedetomidine 400 MCG in sodium chloride 0.9% (100 ml) 100 ML 24.33 MCG IV ×2 (16:37→16:50)
[2023-01-25] MEDS: dextrose 5% 1,000 ML 75 ML IV (17:20)
--- NOTE | 2023-01-25 18:15 | PC.NURSE ---
Called Dr. Pugh for consult on patient. Patient bleeding a moderate amount from penis. Dr. Pugh gave orders to re insert zelaya to stop bleeding. Dr. Pugh will see patient as soon as possible.
--- NOTE | 2023-01-25 18:42 | PC.NURSE ---
Dr. Pugh wants manual irrigation to zelaya every hour while urine is still bright red, can DC irrigations when urine is clear
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
[2023-01-25] MEDS: dexmedetomidine 400 MCG in sodium chloride 0.9% (100 ml) 100 ML 21.9 MCG IV (23:47)
[2023-01-26] VITALS (53 sets, daily range): BP systolic 89–152; BP diastolic 48–105; PULSE 45–125; RESP 14–47; TEMP 37.3–38.3; O2SAT 83–100
[2023-01-26] MEDS: chlorhexidine gluconate 4% Btl 118 mL 1 APPLIC TOPICAL (01:42)
[2023-01-26] MEDS: piperacillin-tazobactam 3.375 GM in sodium chloride 0.9% (plus) 50 ML IV ×3 (02:31→18:00)
[2023-01-26 03:20] LABS: Basophils # 0.1 10^3/uL (0.0-0.1); Basophils % 0.5 %; Eosinophils # 0.3 10^3/uL (0.0-0.8); Eosinophils % 2.3 %; Hematocrit 34.5 % (42.0-52.0); Hemoglobin 11.5 g/dL (11.7-16.6); Lymphocytes # 2.6 10^3/uL (0.8-4.8); Lymphocytes % 20.5 %; Mean Corpuscular HGB Conc 33.3 g/dL (30.0-36.0); Mean Corpuscular Hemoglobin 32.4 pg (28.0-34.0); Mean Corpuscular Volume 97.2 fl (80-94); Mean Platelet Volume 10.2 fL (7.4-10.4); Monocytes # 1.3 10^3/uL (0.2-0.9); Monocytes % 10.3 %; Neutrophils # 8.45 10^3/uL (1.8-7.7); Neutrophils % 66.1 %; Nucleated Red Blood Cells % 0 %; Platelet Count 201 10^3/cmm (130-400); Red Blood Count 3.55 10^6/uL (4.1-5.3); Red Cell Distribution Width 13.5 % (12.1-15.1); White Blood Count 12.8 10^3/uL (4.0-10.0)
[2023-01-26 04:00] LABS: Alanine Aminotransferase 21 U/L (0-41); Albumin Level 3.2 g/dL (3.5-5.2); Alkaline Phosphatase 32 U/L (40-130); Aspartate Amino Transferase 31 U/L (0-40); Blood Urea Nitrogen 12 mg/dL (6-20); Calcium 8.3 mg/dL (8.5-10.5); Carbon Dioxide 28 mmol/L (22-29); Chloride 106 mmol/L (98-107); Globulin 2.4 g/dL (1.3-4.6); Glomerular Filtration Rate 83.2 mL/min (90-130); Glucose 94 mg/dL (65-115); Osmolality Calculated 298 mOsm/kg (285-295); Sodium 144 mmol/L (136-145); Total Bilirubin 0.5 mg/dL (0.15-1.2); Total Protein 5.6 g/dL (6.6-8.7)
[2023-01-26] MEDS: dextrose 5% 1,000 ML 75 ML IV (05:38)
[2023-01-26 06:35] LABS: Glucose Point of Care 103 mg/dL (70-110)
[2023-01-26 08:24] LABS: Glucose Point of Care 106 mg/dL (70-110)
[2023-01-26] MEDS: CLONazepam 1 mg Tablet PO (09:02)
[2023-01-26] MEDS: enoxaparin 40 mg/0.4 mL Syringe SUBCUT (10:47)
[2023-01-26] MEDS: pantoprazole 40 mg SDV IVP (10:52)
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
--- NOTE | 2023-01-26 13:53 | XRR_ITS ---
PROCEDURE INFORMATION: Exam: XR Left Knee Exam date and time: 01/26/2023 1:59 PM Age: 37 years old Clinical indication: Pain; Knee; Bilateral; Additional info: Evaluate for fracture TECHNIQUE: Imaging protocol: Radiologic exam of the left knee. Views: 1 or 2 views. COMPARISON: No relevant prior studies available. FINDINGS: Bones/joints: No fracture. Soft tissues: Normal. Other findings: Suspect mild Jeannette-Stiedia. XR/XR knee LT 1-2V [id number] IMPRESSION: No acute findings.
--- NOTE | 2023-01-26 13:53 | XRR_ITS ---
PROCEDURE INFORMATION: Exam: XR Right Foot Exam date and time: 01/26/2023 1:54 PM Age: 37 years old Clinical indication: Pain; Knee; Bilateral; Additional info: Evaluate for fracture TECHNIQUE: Imaging protocol: Radiologic exam of the right foot. Views: 1 or 2 views. COMPARISON: No relevant prior studies available. FINDINGS: Bones/joints: Normal. Soft tissues: Normal. XR/XR foot RT 2V [id number] IMPRESSION: No acute findings.
--- NOTE | 2023-01-26 13:53 | XRR_ITS ---
PROCEDURE INFORMATION: Exam: XR Right Knee Exam date and time: 01/26/2023 1:57 PM Age: 37 years old Clinical indication: Pain; Knee; Bilateral; Additional info: Evaluate for fracture TECHNIQUE: Imaging protocol: Radiologic exam of the right knee. Views: 1 or 2 views. COMPARISON: CR XR foot RT 2V [id number] 01/26/2023 1:54 PM FINDINGS: Bones/joints: Normal. Soft tissues: Normal. XR/XR knee RT 1-2V [id number] IMPRESSION: No acute findings.
--- NOTE | 2023-01-26 13:53 | USCV_ITS ---
Piyush Palmer Age: 37 Gender: M : 1985 Exam Date: 01/26/2023 15:43 Ordering Phys: Angelica Castro MD Technologist: ASHU [place] [facility] [place]: [place] HISTORY: Stasis PROCEDURES: Venous duplex imaging was performed in bilateral lower extremities. The following venous structures were evaluated: common femoral vein, profunda vein, proximal portion of the greater saphenous vein, superficial femoral vein, and the popliteal vein. In addition, the posterior tibial and peroneal trunk were evaluated. Serial compression, augmentation maneuvers, and spectral Doppler flow evaluation were performed. FINDINGS: No evidence of DVT seen in any vessel visualized at this time. CONCLUSIONS No DVT bilateral lower extremities. Dr. Izzy Hubbard DO (Electronically Signed) Final Date: 26 January 2023 16:25 S
[2023-01-26] MEDS: oxyCODONE-APAP 5-325 mg Tablet 1 TAB PO ×2 (14:18→21:24)
[2023-01-26] MEDS: ibuprofen 600 mg Tablet PO (14:19)
[2023-01-26] MEDS: lidocaine 1% 5 ML in potassium chloride premix 100 ML 26.25 ML IV (14:23)
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
[2023-01-26 17:25] LABS: Glucose Point of Care 97 mg/dL (70-110)
[2023-01-26] MEDS: morphine 4 mg/mL SDV 1 mL 2 MG IVP ×2 (17:57→23:49)
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
--- NOTE | 2023-01-26 18:35 | PC.NURSE ---
Shift Summary: uneventful shift. Patient rested in bed for most of the day, BUt did get up to a bedside commode requiring standby assistance. Precedex was weaned off and klonipin started. TPN discontinued and started on regular diet. Patient is alert and oriented to person, place, time, and situation. Patient has been calm and cooperative all day.
--- NOTE | 2023-01-26 19:25 | PC.PHAR ---
PHARMACY TO DOSE - VANCOMYCIN Calculated the patient's dose with current vitals and labs at 1750mg every 12 hours with a predicted peak of 35.1 mcg/mL and a trough of 10.82 mcg/ mL. Patient had a previous dose of 1500mg every 12 hours that resulted in a trough of 14.2. His renal function has improved since this time so I increased the dose. Will continue to monitor the patient's renal function and make adjustments as needed. Trough levels will be checked prior to the 4th dose. Let us know if there is anything else we can help with. Thanks, Raghav Hansen, Pharm.D
[2023-01-26] MEDS: vancomycin 1,750 MG/350 ML PIGGYBACK 233.33 MG IV (19:51)
[2023-01-26] MEDS: haloperidol inj 5 mg/mL INJ 1 mL 1 MG IVP (22:43)
[2023-01-27] VITALS (58 sets, daily range): BP systolic 102–144; BP diastolic 62–104; PULSE 52–104; RESP 1–33; TEMP 36.5–38.2; O2SAT 20–100
[2023-01-27] MEDS: chlorhexidine gluconate 4% Btl 118 mL 1 APPLIC TOPICAL (00:24)
--- NOTE | 2023-01-27 00:51 | PC.NURSE ---
Addendum entered by Nyla Baez RN 01/27/23 07:10: Wasted with YEIMI Salmon. Original Note: Wasted 175 mL of Dexmedetomidine 1000mcg/250mL: 25mL of Fentanyl 1000mcg/100mL; and 105mL of Versed 100mg/100mL with YEIMI Redmond at 0050
[2023-01-27] MEDS: piperacillin-tazobactam 3.375 GM in sodium chloride 0.9% (plus) 50 ML IV ×3 (03:04→18:11)
[2023-01-27] MEDS: CLONazepam 1 mg Tablet PO ×3 (03:05→17:07)
[2023-01-27] MEDS: morphine 4 mg/mL SDV 1 mL 2 MG IVP ×3 (04:11→12:35)
[2023-01-27 04:49] LABS: Basophils # 0.1 10^3/uL (0.0-0.1); Basophils % 0.5 %; Eosinophils # 0.6 10^3/uL (0.0-0.8); Eosinophils % 5.3 %; Hematocrit 36.2 % (42.0-52.0); Hemoglobin 11.7 g/dL (11.7-16.6); Lymphocytes # 2.3 10^3/uL (0.8-4.8); Lymphocytes % 19.5 %; Mean Corpuscular HGB Conc 32.3 g/dL (30.0-36.0); Mean Corpuscular Hemoglobin 31.5 pg (28.0-34.0); Mean Corpuscular Volume 97.3 fl (80-94); Mean Platelet Volume 10.5 fL (7.4-10.4); Monocytes # 1.4 10^3/uL (0.2-0.9); Monocytes % 11.9 %; Neutrophils # 7.25 10^3/uL (1.8-7.7); Neutrophils % 62.3 %; Nucleated Red Blood Cells % 0 %; Platelet Count 217 10^3/cmm (130-400); Red Blood Count 3.72 10^6/uL (4.1-5.3); Red Cell Distribution Width 13.2 % (12.1-15.1); White Blood Count 11.7 10^3/uL (4.0-10.0)
[2023-01-27 05:05] LABS: Alanine Aminotransferase 19 U/L (0-41); Albumin Level 2.8 g/dL (3.5-5.2); Alkaline Phosphatase 38 U/L (40-130); Aspartate Amino Transferase 25 U/L (0-40); Blood Urea Nitrogen 12 mg/dL (6-20); Calcium 8.1 mg/dL (8.5-10.5); Carbon Dioxide 27 mmol/L (22-29); Chloride 103 mmol/L (98-107); Globulin 2.6 g/dL (1.3-4.6); Glomerular Filtration Rate 93.9 mL/min (90-130); Glucose 103 mg/dL (65-115); Osmolality Calculated 290 mOsm/kg (285-295); Sodium 140 mmol/L (136-145); Total Bilirubin 0.6 mg/dL (0.15-1.2); Total Protein 5.4 g/dL (6.6-8.7)
[2023-01-27] MEDS: oxyCODONE-APAP 5-325 mg Tablet 1 TAB PO (07:16)
[2023-01-27] MEDS: vancomycin 1,750 MG/350 ML PIGGYBACK 233 MG IV ×2 (07:21→21:17)
[2023-01-27] MEDS: ibuprofen 600 mg Tablet PO ×3 (10:00→20:44)
[2023-01-27] MEDS: pantoprazole 40 mg SDV IVP (10:02)
[2023-01-27] MEDS: enoxaparin 40 mg/0.4 mL Syringe SUBCUT (10:09)
--- NOTE | 2023-01-27 10:32 | PC.NURSE ---
Patient has recieved hydrocodone, morphine, and scheduled ibuprofen. Patient reports no pain relief and requests higher doses. NUrse has reported this to Dr gutiérrez. Patient has only gotten out of bed once since extubation to use the bedside commode. Nurse has explained importance of getting up to a chair to gain strength and eventually start ambulating. Patient refuses to get up at this time, says that he is in too much pain to get up to a chair. Reports mostly foot and knee pain, but also generalized pain to a lesser degree.
[2023-01-27] MEDS: fentaNYL 25 mcg Patch 1 PATCH TRANSDERMA (13:10)
[2023-01-27] MEDS: oxyCODONE-APAP 10-325 mg Tablet 1 TAB PO ×2 (13:12→19:24)
[2023-01-27] MEDS: colchicine 0.6 mg Tablet 1.2 MG PO (14:08)
[2023-01-27] MEDS: HYDROmorphone 1 mg/mL INJ 1 mL IVP ×3 (14:31→22:37)
[2023-01-27] MEDS: colchicine 0.6 mg Tablet PO (15:11)
--- NOTE | 2023-01-27 15:30 | W.PM.NPUPNS ---
Subjective NPU Subjective: Patient presented today reporting that he was feeling ready to discharge. He reported that he is having no suicidal thoughts. Not a single one in his bones. We discussed as not having the liberty of being inside his head and that having such a significant suicide attempt does not allow us to discharge him immediately because he has had an epiphany. We discussed the fact that he is on a hold through Monday of next week and that we will evaluate him daily and try to get collateral information to make the decision of when it would be appropriate for discharge. He continued to lobby for discharge but ultimately seemed to gain a reasonable understanding of the situation that he is in. We discussed the injury that he sustained through pulling his Perales and he expressed optimism that his catheter will be removed tomorrow. We discussed him moving to the neuropsychiatric unit when he is medically cleared. Mental Status Exam MSE Comments: This is a well-nourished well-developed white male in a hospital gown with limited grooming but adequate eye contact. No abnormal movements except for mild psychomotor retardation. Cooperative with exam in mild distress. Speech was mostly normal rate and volume. Mood described as better affect mostly euthymic. Thought process organized. Thought content: Patient denied suicidal or homicidal ideation, there were no delusions reported or noted, he denied any auditory or visual hallucinations. Attention and concentration appeared intact and memory was unreliable ultimately going what day it was and some concerns for memory being less than forthcoming on purpose but none were formally tested. He is alert and oriented times person and place. Insight, judgment and impulse control are limited versus impaired. Vitals/I&O/Wt Last Vital Signs Temp 97.7 F 01/27/23 17:30 Pulse 66 01/27/23 18:00 Resp 17 01/27/23 19:24 BP 126/79 01/27/23 18:00 Pulse Ox 96 01/27/23 19:24 O2 Del Method Room Air 01/27/23 18:00 O2 Flow Rate 1 01/27/23 12:30 FiO2 28 01/25/23 09:13 01/27/23 01/27/23 01/27/23 06:59 14:59 22:59 Intake Total 360 / 1661.013 760 / 760 350 / 1110 Output Total 600 / 2075 450 / 450 250 / 700 Balance -240 / -413.987 310 / 310 100 / 410 Weight last 48 hrs Weight 93.44 kg Weight 93.44 kg Physical Exam Urinary Catheter Management: Perales: Cath Placed During This Visit: yes, but has since been removed by the nurse Reason for Continuing Indwelling Catheter: Acute Urinary Retention or Obstruction Urinary Catheter Date of Insertion: 01/25/23 Urinary Catheter Time of Insertion: 18:13 Date Urinary Catheter Removed: 01/25/23 Time Urinary Catheter Discontinued: 16:00 Data NPU 01/27/23 03:43 01/27/23 03:43 Micro: Microbiology 01/26/23 19:02 Blood Culture - Preliminary Blood NEGATIVE TO DATE 01/26/23 19:02 Blood Culture - Preliminary Blood NEGATIVE TO DATE Microbiology 01/26/23 19:02 Blood Blood Culture - Preliminary NEGATIVE TO DATE 01/26/23 19:02 Blood Blood Culture - Preliminary NEGATIVE TO DATE A&P Assessment and plan (1) Bipolar disorder: (2) Hypertension: (3) Depression: (4) Suicide attempt by multiple drug overdose: (5) Acute alteration in mental status: (6) Acute respiratory failure with hypoxia: (7) Acute hypotension: (8) Shock: (9) Acute kidney injury: (10) Anxiety: (11) Sinus bradycardia: (12) Hypokalemia: (13) Hypernatremia: (14) Urethral trauma: Plan Piyush is a 37-year-old male with a long history of bipolar 1 disorder and anxiety admitted to ICU with a significant overdose. Patient appeared to understand that he required acute inpatient hospitalization when stabilized. 1. Recommended restarting Klonopin at least at 1 mg 4 times a day or 2 mg twice a day as the patient had been on 6 mg a day for several years. #2. Would recommend restarting Seroquel at night to target bipolar disorder in a few days #3. Patient will require transfer to the neuropsychiatric unit for further treatment once deemed medically stable. Attestations NPU Medical Necessity Statement*: Acute inpatient psychiatric hospitalization is medically necessary and clinically indicated at this time. We will plan for transfer to neuropsychiatric unit when deemed medically stable. Likely length of stay 4-7 days. Coding Level of Care Code Acute Code for [facility] Fwd Diagnoses Bipolar disorder F31.9 Hypertension I10 Depression F32.A Suicide attempt by multiple drug overdose T50.912A Acute alteration in mental status R41.82 Acute respiratory failure with hypoxia J96.01 Acute hypotension I95.9 Shock R57.9 Acute kidney injury N17.9 Anxiety F41.9 Sinus bradycardia R00.1 Hypokalemia E87.6 Hypernatremia E87.0 Urethral trauma S37.30XA
--- NOTE | 2023-01-27 16:51 | P.PN_ITS ---
Subjective Subjective: Swelling in his foot is better but still persisting. Started on colchicine and NSAIDs yesterday. Fever curve still with 101 Fahrenheit. Cultures are pending. No other new localizing infectious symptoms. Will add fentanyl patch for pain management. Medications: Reviewed: Yes Medication Review Details: Generic Name Dose Route Start Last Admin Trade Name Sridharq PRN Reason Stop Dose Admin Heparin Sodium (Po rcine) 5,000 unit 01/20/23 02:45 01/22/23 03:35 Heparin 5,000 Un it/Ml Inj 1 Ml SUBCUT 5,000 unit Q12H NUBIA Administration Hydrocortisone Sod ium Succinate 100 mg 01/20/23 17:15 01/22/23 11:02 Hydrocortisone 1 00 Mg/2 Ml Sdv IVP 100 mg Q6H NUBIA Administration Fentanyl 1,000 mcg / Sodium 100 mls @ 0 mls/h r 01/19/23 23:45 01/22/23 02:10 Chloride IV 25 mcg/hr .Q0M NUBIA 2.5 mls/hr Administration Protocol Per Protocol Vasopressin 100 un it/ Sodium 100 mls @ 0 mls/h r 01/20/23 02:30 01/22/23 05:03 Chloride IV 0.04 unit/min .Q0M NUBIA 2.4 mls/hr Administration Protocol Per Protocol Dopamine HCl/Dextr ose 400 mg in 250 mls @ 14.458 mls/hr 01/20/23 02:45 01/22/23 09:55 Intropin Drip IV 10 mcg/kg/min CONT NUBIA 28.92 mls/hr Administration Protocol 5 MCG/KG/MIN Piperacillin Sod/T azobactam 50 mls @ 12.5 mls /hr 01/20/23 03:00 01/22/23 11:03 Sod 3.375 gm/ So dium Chloride IV 12.5 mls/hr Q8H NUBIA Administration Sodium Chloride 500 mls @ 0 mls/h r 01/20/23 04:00 01/20/23 05:12 Sodium Chloride 0.9% XX 3 mls/hr .Q0M NUBIA Administration As Directed Epinephrine HCl 2. 5 mg/ Sodium 252.5 mls @ 0 mls /hr 01/20/23 07:45 01/21/23 04:40 Chloride IV 0 mcg/min .Q0M NUBIA 0 mls/hr Titration Protocol Per Protocol Phenylephrine HCl 25 mg/ 252.5 mls @ 0 mls /hr 01/20/23 07:45 01/20/23 21:30 Sodium Chloride IV 0 mcg/min .Q0M NUBIA 0 mls/hr Titration Protocol Per Protocol Norepinephrine Bit artrate 8 mg 508 mls @ 0 mls/h r 01/20/23 14:00 01/22/23 09:52 / Dextrose IV 14 mcg/min .Q0M NUBIA 53.34 mls/hr Administration Protocol Per Protocol Vancomycin/PEG/NAD A/Lysine/Water 1,500 mg in 300 m ls @ 250 mls/hr 01/21/23 13:30 01/22/23 01:50 Vancocin IV Infused Q12H NUBIA Infusion Sodium Bicarbonate 50 meq/ 1,050 mls @ 75 ml s/hr 01/22/23 05:00 01/22/23 05:02 Sodium Chloride IV 75 mls/hr .Q14H NUBIA Administration Midazolam HCl 2 mg 01/20/23 02:13 01/21/23 06:37 Midazolam 1 Mg/M l Inj 2 Ml IVP 2 mg Q2H PRN Administration AGITATION Pantoprazole Sodiu m 40 mg 01/20/23 09:00 01/22/23 09:53 Pantoprazole 40 Mg Sdv IVP 40 mg DAILY NUBIA Administration Vitals/I&O/Wt Last Vital Signs Temp 100.8 F H 01/27/23 12:30 Pulse 76 01/27/23 15:30 Resp 21 H 01/27/23 15:30 BP 134/78 01/27/23 15:30 Pulse Ox 92 01/27/23 15:30 O2 Del Method Room Air 01/27/23 15:30 O2 Flow Rate 1 01/27/23 12:30 FiO2 28 01/25/23 09:13 01/27/23 01/27/23 01/27/23 06:59 14:59 22:59 Intake Total 360 / 1661.013 760 / 760 50 / 810 Output Total 600 / 2075 450 / 450 Balance -240 / -413.987 310 / 310 50 / 360 Weight last 48 hrs Weight 93.44 kg Weight 93.44 kg Physical Exam Narrative: General: No acute distress, AO x3 HEENT: PERRLA, pupils bilaterally equal and reactive, pallors not present Chest: Normal vesicular breath sounds, no added sounds, equal good air entry bilaterally CVS: S1-S2 regular, no murmurs, no tachycardia, no gallops, no rubs Abdomen: Soft, nontender, no organomegaly, bowel sounds present Neuro: No focal deficits, no facial deformity, AO x3, power 5/5 in all limbs ext: right foot with generalized swelling, also noted to have redness over right knee. Urinary Catheter Management: Zelaya: Cath Placed During This Visit: yes, but has since been removed by the nurse Reason for Continuing Indwelling Catheter: Acute Urinary Retention or Obstruction Urinary Catheter Date of Insertion: 01/25/23 Urinary Catheter Time of Insertion: 18:13 Date Urinary Catheter Removed: 01/25/23 Time Urinary Catheter Discontinued: 16:00 Data 01/28/23 03:46 01/28/23 03:46 Micro: Microbiology 01/26/23 19:02 Blood Culture - Preliminary Blood SPECIMEN COLLECTED 01/26/23 19:02 Blood Culture - Preliminary Blood SPECIMEN COLLECTED A&P Assessment and plan (1) Suicide attempt by multiple drug overdose: (2) Acute alteration in mental status: (3) Acute respiratory failure with hypoxia: (4) Acute hypotension: (5) Shock: (6) Acute kidney injury: (7) Hypertension: (8) Anxiety: (9) Depression: (10) Sinus bradycardia: (11) Hypokalemia: (12) Hypernatremia: Plan 37-year-old male with past medical history of drug abuse, anxiety depression, admitted to the hospital on January 19, 2023 after presenting with suicide attempt, when he overdosed with multiple medications including duloxetine, gabapentin, hydrochlorothiazide lisinopril propanolol, tizanidine, clonidine. He was intubated upon admission due to poor GCS and hypoxic respiratory failure Patient was extubated however needed to be reintubated on January 22, 2023 due to poor GCS. On reintubation laryngeal edema was encountered. Now successfully extubated on 01/25, [id number] airway Currently he is awake alert and oriented. Tolerating a regular diet Hypernatremia resolved , sodium now at 140. Rigth foot generalized swelling with reported h/o trauma. X-rays returned negative for any fractures of both knees and foot. Swelling over right knee and cough is much improved today. His foot is also appearing to be less swollen. Currently receiving ibuprofen. Colchicine will be added for gout flare. T max 100.8 Fahrenheit suspect gout flare after stopping steroids vs developing cellulitis. has prior h/o gout for which he takes colchicine and allopurinol check blood cx, still pending Uretheral trauma from akilah Zelaya : appreciate urology recommendations. zelaya in place currently. To be maintained until hematuria resolves. CT of the chest abdomen and pelvis shows dependent bibasilar consolidation for w hich she is currently on antibiotic treatment with piperacillin/tazobactam. Note also made of possible colitis, however no clinical correlate for the same. He is yet to have a bowel movement. Echocardiogram performed on January 20 showed LV systolic function with a EF of 45 to 50%, mildly dilated aortic root. Troponin series unremarkable Blood culture from January 20, 2023 remains negative to date Urine culture negative to date LIBAN present on admission with creatinine of 1.7, now improved to 1.0, likely secondary to SAMINA inhibitor overdose Leukocytosis resolving Tmax 99 Fahrenheit over 24 hours Reduce hydrocortisone to 50 mg daily Patient does have significant wheezing encountered on exam today, suspect that this is related to beta-ceferino overdose. His wheezing did resolve after being given nebulization with albuterol. CODE STATUS: Full code DVT prophylaxis : lovenox PUD ppx: Protonix Attestations Medical Necessity Statement*: Add colchicine, continue 96-hour hold, Lasix, plan to transfer to n.p.u once hematuria resolves . Procedures Arterial Line Size (Gauge): 18 Coding Level of Care Code Acute Code for [facility] Fwd Diagnoses Suicide attempt by multiple drug overdose T50.912A Acute alteration in mental status R41.82 Acute respiratory failure with hypoxia J96.01 Acute hypotension I95.9 Shock R57.9 Acute kidney injury N17.9 Hypertension I10 Anxiety F41.9 Depression F32.A Sinus bradycardia R00.1 Hypokalemia E87.6 Hypernatremia E87.0
--- NOTE | 2023-01-27 17:54 | PC.NURSE ---
SHift SUmmary: Uneventful shift. Patient got up to a chair for about 10 minutes. Frequent complaints of pain, pain medication increased and colchicine started for suspected gout flare up. Catheter has been clear of blood clots. Fentanyl patch to right arm. Dr marrufo has rounded today. Still on 96 hour hold. ALert to person, place time, and situation. Calm and cooperative.
[2023-01-27 20:37] LABS: Vancomycin Trough 9.6 ug/mL (10-15)
[2023-01-27] MEDS: haloperidol inj 5 mg/mL INJ 1 mL 1 MG IVP (20:45)
[2023-01-28] VITALS (59 sets, daily range): BP systolic 103–156; BP diastolic 55–103; PULSE 47–80; RESP 2–24; TEMP 36.6–36.7; O2SAT 84–97
[2023-01-28] MEDS: CLONazepam 1 mg Tablet PO ×4 (01:47→20:21)
[2023-01-28] MEDS: oxyCODONE-APAP 10-325 mg Tablet 1 TAB PO ×4 (01:47→20:21)
[2023-01-28] MEDS: HYDROmorphone 1 mg/mL INJ 1 mL IVP ×4 (02:40→22:50)
[2023-01-28] MEDS: piperacillin-tazobactam 3.375 GM in sodium chloride 0.9% (plus) 50 ML IV (02:41)
[2023-01-28] MEDS: haloperidol inj 5 mg/mL INJ 1 mL 1 MG IVP ×2 (03:35→20:15)
[2023-01-28 04:53] LABS: Basophils # 0.1 10^3/uL (0.0-0.1); Basophils % 0.6 %; Eosinophils # 0.7 10^3/uL (0.0-0.8); Hematocrit 34.9 % (42.0-52.0); Hemoglobin 11.4 g/dL (11.7-16.6); Lymphocytes # 3.1 10^3/uL (0.8-4.8); Lymphocytes % 31.6 %; Mean Corpuscular HGB Conc 32.7 g/dL (30.0-36.0); Mean Platelet Volume 10.6 fL (7.4-10.4); Monocytes # 1.4 10^3/uL (0.2-0.9); Monocytes % 14.3 %; Neutrophils % 45.9 %; Nucleated Red Blood Cells % 0 %; Platelet Count 259 10^3/cmm (130-400); Red Blood Count 3.56 10^6/uL (4.1-5.3); White Blood Count 9.8 10^3/uL (4.0-10.0)
[2023-01-28 05:28] LABS: Alanine Aminotransferase 23 U/L (0-41); Albumin Level 3.4 g/dL (3.5-5.2); Alkaline Phosphatase 46 U/L (40-130); Anion Gap 13.8 (5-19); Aspartate Amino Transferase 26 U/L (0-40); Blood Urea Nitrogen 11 mg/dL (6-20); Calcium 8.9 mg/dL (8.5-10.5); Carbon Dioxide 30 mmol/L (22-29); Chloride 103 mmol/L (98-107); Glomerular Filtration Rate 125.5 mL/min (90-130); Glucose 84 mg/dL (65-115); Osmolality Calculated 295 mOsm/kg (285-295); Potassium 3.8 mmol/L (3.5-5.1); Sodium 143 mmol/L (136-145); Total Bilirubin 0.4 mg/dL (0.15-1.2); Total Protein 6.4 g/dL (6.6-8.7)
[2023-01-28] MEDS: ibuprofen 600 mg Tablet PO ×3 (08:09→21:01)
[2023-01-28] MEDS: pantoprazole 40 mg SDV IVP (08:12)
--- NOTE | 2023-01-28 08:56 | PM.PN ---
Subjective Subjective: Urology follow-up Continues to recover well from urethral trauma from forcible withdrawal of the urethral catheter with balloon inflated. Urine remains clear. He is not having severe bleeding around the catheter. Has been good about not pulling on the catheter. I reviewed with him that we may try a catheter removal tomorrow but may require catheter placement if he has significant bleeding or has difficulty voiding. I expect that he will be okay. Vitals/I&O/Wt Last Vital Signs Temp 98.0 F 01/28/23 00:01 Pulse 55 L 01/28/23 06:00 Resp 12 01/28/23 08:09 BP 109/64 01/28/23 02:00 Pulse Ox 96 01/28/23 08:09 O2 Del Method Room Air 01/27/23 22:00 O2 Flow Rate 1 01/27/23 12:30 FiO2 28 01/25/23 09:13 01/27/23 01/28/23 01/28/23 22:59 06:59 14:59 Intake Total 1150 / 1910 550 / 2460 Output Total 550 / 1000 400 / 1400 Balance 600 / 910 150 / 1060 Weight last 48 hrs Weight 205 lb Weight 206 lb Physical Exam Narrative: Alert, oriented, somewhat sedated Neck good range of motion Abdomen is soft nontender no palpable masses. Phallus is normal. No bruising. No erythema. Scrotum grossly normal. Testicles descended bilateral without masses. Perineum without bruising. Perales catheter in place. No significant discharge or bleeding around the catheter. Urine is clear Extremities good range of motion Neurologically intact Urinary Catheter Management: Perales: Cath Placed During This Visit: yes, but has since been removed by the nurse Reason for Continuing Indwelling Catheter: Acute Urinary Retention or Obstruction Urinary Catheter Date of Insertion: 01/25/23 Urinary Catheter Time of Insertion: 18:13 Date Urinary Catheter Removed: 01/25/23 Time Urinary Catheter Discontinued: 16:00 Data 01/28/23 03:46 01/28/23 03:46 Micro: Microbiology 01/26/23 19:02 Blood Culture - Preliminary Blood NEGATIVE TO DATE 01/26/23 19:02 Blood Culture - Preliminary Blood NEGATIVE TO DATE A&P Assessment and plan (1) Urethral trauma: Plan 1. We will plan on Perales removal tomorrow morning 2. If he voids well and does not have significant bleeding we can leave it out and he can move to his planned care and Neuropsych Unit Attestations Medical Necessity Statement*: See attending Procedures Arterial Line Size (Gauge): 18 Coding Level of Care Code Acute Code for Chg Fwd Diagnoses Urethral trauma S37.30XA
[2023-01-28] MEDS: vancomycin 1,750 MG/350 ML PIGGYBACK 223 MG IV (09:05)
[2023-01-28] MEDS: colchicine 0.6 mg Tablet PO (09:07)
--- NOTE | 2023-01-28 11:08 | W.PM.NPUPNS ---
Subjective NPU Subjective: Patient presented today reporting that he was ready to come over to the neuropsychiatric unit when medically cleared and initially was calm and cooperative. However while there he requested pain medication and initially his vital signs were outside of a range that allowed him to be given with his pulse being low. We attempted to reason with him but he got out of control pulling his leads off getting up grabbing his Perales and catchment bag for his urine. Ultimately he was being aggressive towards the nurse and a code 10 was called. Mental Status Exam MSE Comments: This is a well-nourished well-developed white male in a hospital gown with limited grooming but adequate eye contact. No abnormal movements except for mild psychomotor retardation. Cooperative with exam in mild distress. Speech was mostly normal rate and volume. Mood described as better affect mostly euthymic except for the periods where he got upset with his nurse. Thought process organized. Thought content: Patient denied suicidal or homicidal ideation, there were no delusions reported or noted, he denied any auditory or visual hallucinations. Attention and concentration appeared intact and memory was unreliable ultimately going what day it was and some concerns for memory being less than forthcoming on purpose but none were formally tested. He is alert and oriented times person and place. Insight, judgment and impulse control are limited versus impaired. Vitals/I&O/Wt Last Vital Signs Temp 98.0 F 01/28/23 00:01 Pulse 49 L 01/28/23 10:30 Resp 12 01/28/23 10:30 BP 107/78 01/28/23 10:30 Pulse Ox 93 01/28/23 10:30 O2 Del Method Room Air 01/28/23 09:34 O2 Flow Rate 1 01/27/23 12:30 FiO2 28 01/25/23 09:13 01/27/23 01/28/23 01/28/23 22:59 06:59 14:59 Intake Total 1150 / 1910 550 / 2460 Output Total 550 / 1000 400 / 1400 Balance 600 / 910 150 / 1060 Weight last 48 hrs Weight 92.986 kg Weight 93.44 kg Physical Exam Urinary Catheter Management: Perales: Cath Placed During This Visit: yes, but has since been removed by the nurse Reason for Continuing Indwelling Catheter: Acute Urinary Retention or Obstruction Urinary Catheter Date of Insertion: 01/25/23 Urinary Catheter Time of Insertion: 18:13 Date Urinary Catheter Removed: 01/25/23 Time Urinary Catheter Discontinued: 16:00 Data NPU 01/28/23 03:46 01/28/23 03:46 Micro: Microbiology 01/26/23 19:02 Blood Culture - Preliminary Blood NEGATIVE TO DATE 01/26/23 19:02 Blood Culture - Preliminary Blood NEGATIVE TO DATE Microbiology 01/26/23 19:02 Blood Blood Culture - Preliminary NEGATIVE TO DATE 01/26/23 19:02 Blood Blood Culture - Preliminary NEGATIVE TO DATE A&P Assessment and plan (1) Bipolar disorder: (2) Hypertension: (3) Depression: (4) Suicide attempt by multiple drug overdose: (5) Acute alteration in mental status: (6) Acute respiratory failure with hypoxia: (7) Acute hypotension: (8) Shock: (9) Acute kidney injury: (10) Anxiety: (11) Sinus bradycardia: (12) Hypokalemia: (13) Hypernatremia: (14) Urethral trauma: Plan Piyush is a 37-year-old male with a long history of bipolar 1 disorder and anxiety admitted to ICU with a significant overdose. Patient appeared to understand that he required acute inpatient hospitalization when stabilized. 1. Recommended restarting Klonopin at least at 1 mg 4 times a day or 2 mg twice a day as the patient had been on 6 mg a day for several years. #2. Would recommend restarting Seroquel at night to target bipolar disorder in a few days #3. Patient will require transfer to the neuropsychiatric unit for further treatment once deemed medically stable, tentatively tomorrow. Attestations NPU Medical Necessity Statement*: Acute inpatient psychiatric hospitalization is medically necessary and clinically indicated at this time. We will plan for transfer to neuropsychiatric unit when deemed medically stable. Likely length of stay 3-6 days. Coding Level of Care Code Acute Code for g Fwd Diagnoses Bipolar disorder F31.9 Hypertension I10 Depression F32.A Suicide attempt by multiple drug overdose T50.912A Acute alteration in mental status R41.82 Acute respiratory failure with hypoxia J96.01 Acute hypotension I95.9 Shock R57.9 Acute kidney injury N17.9 Anxiety F41.9 Sinus bradycardia R00.1 Hypokalemia E87.6 Hypernatremia E87.0 Urethral trauma S37.30XA
--- NOTE | 2023-01-28 13:47 | PC.NURSE ---
Code 10 called: Patient requested opiod pain medication, dilaudid, hydrocodone, and he wanted klonipin. NUrse advised patient that his heart rate has been low, in the low 50's, sometimes in the 40s. Nurse said they will call his doctor about it as it may not be safe for him to get any opiod pain medications at this time, concern of dropping heart rate further. Patient became very upset, demanded to speak to a doctor. Dr rizo happened to just finish rounding with this patient and came back in, explained to the patient that he has been bradycardic and additional pain medication may not be safe. Patient then attempted to leave. started pulling off monitoring and IV. GOt out of bed to leave. Code 10 called, security came to icu. Patient went back to bed, but continued to be irate. Dr gutiérrez came to unit and discussed some medicaiton changes with the patient to help control pain. Patient given dilaudid, hooked back up to laboratory monitor, will continue to monitor heart rate.
[2023-01-28] MEDS: fentaNYL 50 mcg Patch 1 PATCH TRANSDERMA (15:18)
[2023-01-28] MEDS: amoxicillin-clav 875-125 mg Tablet 1 TAB PO (17:00)
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
--- NOTE | 2023-01-28 18:36 | PC.NURSE ---
Attempted to administer PRN Dilaudid, HOwever IV had come out and dilaudid was spilled. Nurse wasted Dilaudid in pyxis with JUAN JOSE RN. New dilaudid pulled and administered.
--- NOTE | 2023-01-28 18:40 | PC.NURSE ---
SHIft SUmmary: Besides code 10 (see nurse note), uneventful shift. Patient was calm and cooperative both before and after code 10. patient rested in bed throughout the day. Perales possibly coming out tomorrow which would allow him to go to NPU. CUrrently on a 96 hour hold.
[2023-01-28] MEDS: vancomycin 1,750 MG/350 ML PIGGYBACK 233 MG IV (20:23)
[2023-01-28] MEDS: nicotine 4 mg lozenge MUCOUS MEM (22:24)
[2023-01-28] MEDS: quetiapine 300 mg Tablet PO (22:56)
[2023-01-29] VITALS (34 sets, daily range): BP systolic 116–154; BP diastolic 74–103; PULSE 49–100; RESP 12–18; TEMP 36.6–37.1; O2SAT 92–98; BMI 25.6
[2023-01-29] MEDS: oxyCODONE-APAP 10-325 mg Tablet 1 TAB PO ×4 (02:20→21:36)
[2023-01-29] MEDS: nicotine 4 mg lozenge MUCOUS MEM ×3 (02:21→21:39)
[2023-01-29] MEDS: CLONazepam 1 mg Tablet PO ×4 (02:21→20:52)
[2023-01-29] MEDS: vancomycin 1,750 MG/350 ML PIGGYBACK 233 MG IV (07:56)
--- NOTE | 2023-01-29 09:31 | PC.NURSE ---
Patient , Kiara called for update. After providing update on patient condition, and attempting to answer projected discharge date, patient then stated, when he gets discharged tell him he has to go to his moms house because he cannot come back here, we are in the middle of a divorce. Patient family then disconnected the call. This nurse notified unit charge nurse.
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
[2023-01-29] MEDS: colchicine 0.6 mg Tablet PO (10:10)
[2023-01-29] MEDS: ibuprofen 600 mg Tablet PO ×2 (10:10→14:24)
[2023-01-29] MEDS: amoxicillin-clav 875-125 mg Tablet 1 TAB PO (10:10)
[2023-01-29] MEDS: nicotine 21 mg Patch 1 PATCH TRANSDERMA (10:11)
[2023-01-29] MEDS: pantoprazole 40 mg SDV IVP (10:11)
[2023-01-29] MEDS: enoxaparin 40 mg/0.4 mL Syringe SUBCUT (10:11)
[2023-01-29] MEDS: HYDROmorphone 1 mg/mL INJ 1 mL IVP (10:49)
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
--- NOTE | 2023-01-29 15:41 | PC.NURSE ---
Report called to NPU, nurse to receive patient after 1600, nurse stated it would be a patient safety issue to transfer during visiting hours. IV removed, patient updated on plan for transfer. Patient is restless and wants to move to NPU as soon as possible.
--- NOTE | 2023-01-29 16:09 | PC.NURSE ---
Patient transferred to NPU, 1 security staff and 1 tech. Patient silver colored wedding band, medication from patient bin, and paper chart transferred with patient.
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
--- NOTE | 2023-01-29 18:15 | PC.NURSE ---
While pt was outside, pt picked his blister on his heal of his right foot. Nurse encouraged pt to not touch the blister and to let it reabsorb.
[2023-01-29] MEDS: sulfamethoxazole-trimeth DS 160-800 mg Tablet 1 TAB PO (18:44)
[2023-01-29] MEDS: quetiapine 300 mg Tablet PO (20:41)
[2023-01-29] MEDS: trazodone 50 mg Tablet PO (23:02)
[2023-01-30] VITALS (8 sets, daily range): BP systolic 120–161; BP diastolic 65–93; PULSE 76–79; RESP 16–20; TEMP 36.2–36.8; O2SAT 93–99
[2023-01-30] MEDS: trazodone 50 mg Tablet PO ×3 (00:02→21:49)
[2023-01-30] MEDS: oxyCODONE-APAP 10-325 mg Tablet 1 TAB PO ×3 (06:38→18:27)
[2023-01-30] MEDS: nicotine 2 mg Gum BUCCAL (06:38)
[2023-01-30] MEDS: CLONazepam 1 mg Tablet PO ×5 (06:39→22:39)
[2023-01-30] MEDS: nicotine 21 mg Patch 1 PATCH TRANSDERMA (08:39)
[2023-01-30] MEDS: colchicine 0.6 mg Tablet PO (08:39)
[2023-01-30] MEDS: pantoprazole DR 40 mg Tablet PO (08:39)
[2023-01-30] MEDS: sulfamethoxazole-trimeth DS 160-800 mg Tablet 1 TAB PO ×2 (08:39→18:27)
[2023-01-30] MEDS: ibuprofen 600 mg Tablet PO ×2 (10:02→15:02)
[2023-01-30] MEDS: predniSONE 20 mg Tablet 40 MG PO (10:02)
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
[2023-01-30] MEDS: quetiapine 300 mg Tablet PO (20:26)
[2023-01-30] MEDS: hyDROXYzine 25 mg Capsule 50 MG PO (21:21)
[2023-01-30] MEDS: haloperidol 5 mg Tablet PO (21:44)
[2023-01-30] MEDS: neomycin-poly-bacitracin oint 28 gm 1 APPLIC TOPICAL (23:06)
[2023-01-31] VITALS (7 sets, daily range): BP systolic 124–158; BP diastolic 71–93; PULSE 66–88; RESP 15–20; TEMP 36.6–36.7; O2SAT 93–97
[2023-01-31] MEDS: CLONazepam 1 mg Tablet PO ×4 (06:55→21:29)
[2023-01-31] MEDS: oxyCODONE-APAP 10-325 mg Tablet 1 TAB PO ×3 (06:55→18:59)
[2023-01-31] MEDS: nicotine 21 mg Patch 1 PATCH TRANSDERMA (08:17)
[2023-01-31] MEDS: sulfamethoxazole-trimeth DS 160-800 mg Tablet 1 TAB PO ×2 (08:19→17:58)
[2023-01-31] MEDS: colchicine 0.6 mg Tablet PO (08:19)
[2023-01-31] MEDS: pantoprazole DR 40 mg Tablet PO (08:19)
[2023-01-31] MEDS: duloxetine 60 mg Capsule 120 MG PO (08:19)
[2023-01-31] MEDS: predniSONE 20 mg Tablet 40 MG PO (08:19)
[2023-01-31] MEDS: ibuprofen 600 mg Tablet PO ×2 (08:21→16:45)
--- NOTE | 2023-01-31 12:54 | PC.NURSE ---
PRN KLONOPIN 1 MG GIVEN PO PER PT C/O INCREASED ANXIETY
[2023-01-31] MEDS: fentaNYL 50 mcg Patch 1 PATCH TRANSDERMA (14:10)
[2023-01-31] MEDS: amlodipine 5 mg Tablet PO (15:09)
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
--- NOTE | 2023-01-31 17:45 | P.NPUPN_ITS ---
Subjective NPU Subjective: Patient presented today reporting that he is working with the treatment team on a plan for him to continue treatment back in his hometown and work on the challenges in his life. He was able to have a conversation about his and her seemingly moving on. He spoke emotionally but firmly about the need for him to use his opportunity to reconnect with his children, get his personal functio nality in order etc. He was able to identify his love for her but also the toxicity and dysfunctionality of that relationship. We discussed the tentative plan for discharge tomorrow. Mental Status Exam MSE Comments: This is a well-nourished well-developed white male hospital scrubs with some improved grooming and adequate eye contact. No abnormal movements except for mild psychomotor retardation. Cooperative with exam in no acute distress. Speech was mostly normal rate and volume. Mood described as better, affect mostly euthymic. Thought process organized. Thought content: Patient denied suicidal or homicidal ideation, there were no delusions reported or noted, he denied any auditory or visual hallucinations. Attention and concentration appeared intact and memory was more reliable but none were formally tested. He is alert and oriented times 3. Insight, judgment and impulse control are limited, but improving. Vitals/I&O/Wt Last Vital Signs Temp 97.8 F 01/31/23 22:00 Pulse 76 01/31/23 22:00 Resp 15 01/31/23 22:00 BP 152/87 01/31/23 22:00 Pulse Ox 97 01/31/23 22:00 O2 Del Method Room Air 01/31/23 22:00 O2 Flow Rate 1 01/31/23 20:00 FiO2 28 01/25/23 09:13 Physical Exam Urinary Catheter Management: Perales: Cath Placed During This Visit: yes, but has since been removed by the nurse Reason for Continuing Indwelling Catheter: Acute Urinary Retention or Obstruction Urinary Catheter Date of Insertion: 01/25/23 Urinary Catheter Time of Insertion: 18:13 Date Urinary Catheter Removed: 01/25/23 Time Urinary Catheter Discontinued: 16:00 Data NPU 01/28/23 03:46 01/28/23 03:46 Micro: Microbiology 01/26/23 19:02 Blood Culture - Final Blood NO GROWTH AFTER 5 DAYS 01/26/23 19:02 Blood Culture - Final Blood NO GROWTH AFTER 5 DAYS Microbiology 01/26/23 19:02 Blood Blood Culture - Final NO GROWTH AFTER 5 DAYS 01/26/23 19:02 Blood Blood Culture - Final NO GROWTH AFTER 5 DAYS A&P Assessment and plan (1) Suicide attempt by multiple drug overdose: (2) Acute alteration in mental status: (3) Acute respiratory failure with hypoxia: (4) Acute hypotension: (5) Shock: (6) Acute kidney injury: (7) Hypertension: (8) Anxiety: (9) Depression: (10) Sinus bradycardia: (11) Hypokalemia: (12) Hypernatremia: (13) Acute gout: (14) Intractable pain: Plan Piyush is a 37-year-old male with a long history of bipolar 1 disorder and anxiety admitted to ICU with a significant overdose. Patient appeared to understand that he required acute inpatient hospitalization when stabilized. 1.? Continue current medication.? Continue Klonopin 1 mg p.o. 4 times daily and restart Cymbalta 120 mg daily. 2.? Continue every 15 minute checks for safety. 3.? Encourage individual, group and milieu therapies. 4.? Encourage sober living treatment after discharge at the highest level of care to which he is willing to commit. 5. Query hospitalist on the possibility of allopurinol or some other options for his reported worsening gout. Involuntary Hold Information 96 Hour Hold: 96 Hour Involuntary Admission: Yes 96 Hour Hold Ending Date: 01/31/23 96 Hour Hold Ending Time: 10:00 Attestations NPU Medical Necessity Statement*: Acute inpatient psychiatric hospitalization is medically necessary and clinically indicated at this time. We will plan for transfer to neuropsychiatric unit when deemed medically stable. Likely length of stay 1-2 days. Coding Level of Care Code Acute Code for [facility] Fwd Diagnoses Suicide attempt by multiple drug overdose T50.912A Acute alteration in mental status R41.82 Acute respiratory failure with hypoxia J96.01 Acute hypotension I95.9 Shock R57.9 Acute kidney injury N17.9 Hypertension I10 Anxiety F41.9 Depression F32.A Sinus bradycardia R00.1 Hypokalemia E87.6 Hypernatremia E87.0 Acute gout M10.9 Intractable pain R52
[2023-01-31] MEDS: trazodone 50 mg Tablet PO (21:29)
[2023-01-31] MEDS: quetiapine 300 mg Tablet PO (21:29)
[2023-01-31] MEDS: haloperidol 5 mg Tablet PO (21:30)
[2023-02-01 06:00] VITALS: BP 136/85; PULSE 89; RESP 17; O2SAT 93
[2023-02-01 06:30] VITALS: RESP 18
[2023-02-01] MEDS: CLONazepam 1 mg Tablet PO ×2 (06:30→11:46)
[2023-02-01] MEDS: oxyCODONE-APAP 10-325 mg Tablet 1 TAB PO (06:30)
[2023-02-01] MEDS: ibuprofen 600 mg Tablet PO (06:54)
[2023-02-01] MEDS: nicotine 2 mg Gum BUCCAL (07:42)
[2023-02-01 08:00] VITALS: RESP 18
[2023-02-01] MEDS: colchicine 0.6 mg Tablet PO (10:03)
[2023-02-01] MEDS: amlodipine 5 mg Tablet PO (10:03)
[2023-02-01] MEDS: duloxetine 60 mg Capsule 120 MG PO (10:03)
[2023-02-01] MEDS: predniSONE 20 mg Tablet 40 MG PO (10:03)
[2023-02-01] MEDS: sulfamethoxazole-trimeth DS 160-800 mg Tablet 1 TAB PO (10:04)
[2023-02-01] MEDS: pantoprazole DR 40 mg Tablet PO (10:04)
[2023-02-01] MEDS: nicotine 21 mg Patch 1 PATCH TRANSDERMA (10:06)
[2023-02-01] MEDS: haloperidol 5 mg Tablet PO (10:09)
[2023-02-01] MEDS: nicotine 4 mg lozenge MUCOUS MEM (12:16)
[2023-02-01 14:00] VITALS: BP 137/87; PULSE 85; RESP 18; TEMP 36.6; O2SAT 95
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
[2023-02-01 16:18] VITALS: BP 137/87; PULSE 85; RESP 18; TEMP 36.6; O2SAT 95
== END 2023-02-01 16:36 | disposition home or self-care (01) | DRG 917 ==
LOC: ER 01-20 00:32 → ICU 01-20 00:44 → NP 01-29 16:06
PROVIDERS: Student in an Organized Health Care Education/Training Program; Admitting Provider Internal Medicine; Emergency Provider Emergency Medicine; PCP Physician Assistant Medical; Visit Provider Internal Medicine
DX: T50.912A Poisoning by multiple unspecified drugs, medicaments and biological substances, intentional self-harm, initial encounter (principal); J69.0 Pneumonitis due to inhalation of food and vomit; J96.01 Acute respiratory failure with hypoxia; N17.9 Acute kidney failure, unspecified; L03.115 Cellulitis of right lower limb; E87.0 Hyperosmolality and hypernatremia; F31.9 Bipolar disorder, unspecified; I10 Essential (primary) hypertension; I95.9 Hypotension, unspecified; F41.9 Anxiety disorder, unspecified; E29.1 Testicular hypofunction; J45.909 Unspecified asthma, uncomplicated; M10.9 Gout, unspecified; M25.561 Pain in right knee; M25.571 Pain in right ankle and joints of right foot; T83.021A Displacement of indwelling urethral catheter, initial encounter; Y73.8 Miscellaneous gastroenterology and urology devices associated with adverse incidents, not elsewhere classified; E86.0 Dehydration; E87.6 Hypokalemia; R68.0 Hypothermia, not associated with low environmental temperature; R73.9 Hyperglycemia, unspecified
CPT/HCPCS: 12002; 31500; 36415; 36416; 51702; 70450; 71045; 71250; 73560; 73620; 74176; 80048; 80051; 80053; 80202; 80306; 80307; 81001; 82330; 82533; 82803; 82805; 82962; 83605; 83735; 84100; 84443; 84484; 85025; 87040; 87070; 87086; 87205; 92523; 92610; 93005; 93306; 93970; 94002; 94003; 94640; 94664; 94799; 96365; 96366; 96367; 96372; 96375; 96376; 97150; 97165; 99291; A4570; C1751; C9113; J0171; J0461; J0612; J1170; J1265; J1610; J1630; J1644; J1650; J1720; J2250; J2270; J2310; J2370; J2543; J3010; J3370; J3372; J3480; J3486; J3490; J7030; J7040; J7042; J7050; J7060; J7070; J7512; J7626; Q3014